=== PATIENT | female | born 1940 | race Hispanic/Latino ===

== ENCOUNTER 2016-10-21 11:13 | Outpatient (CLI) | payer MEDICARE, OTHER ==
--- NOTE | 2016-10-25 08:53 | PET Report ---
PET/CT:10/21/16 11:13:00 CLINICAL: Left lung cancer restaging. RADIOPHARMACEUTICAL: 12.23mCi F18-FDG. COMPARISON: 06/17/16 PET/CT TECHNIQUE- Following intravenous injection of F-18 FDG and an approximately 60 minute uptake period, CT and PET images from the mid skull to the upper thighs were acquired with the patient in the fasted state. No contrast was administered. The CT protocol used for this PET CT study is designed for attenuation correction and anatomic localization of PET abnormalities. This mailmaster CT is not desired to produce and cannot replace, ienpu-gi-kub-art diagnostic CT scans with specific imaging protocols for different body parts and indications. Plasma glucose at the time of this test: 131g/dl. The standardized uptake values (SUV) are normalized to patient body weight and indicate the highest activity concentration (SUV max) in a given disease site. FINDINGS: Brain--Physiologic FDG uptake in the visualized regions of the brain. Neck--Physiologic FDG uptake . Chest--Physiologic FDG uptake in mediastinal blood pool and myocardium. Lungs--The previously described spiculated left upper lobe lung mass enters 6.2 x 3.7 cm with SUV 4.7 compared to 5.9 x 5.5 and 10.4 SUV on the last exam. The volume of residual FDG uptake a smaller as well. The irregular right upper lobe lung mass has lower density and measures 3.7 x 3.4 cm with SUV 3.1 compared to 2.0. A new lingular lung mass underlies the left sixth rib and measures 1.6 x 1.2 cm with SUV 6.6. Pleura/pericardium--No abnormal uptake. Thoracic nodes--No abnormal uptake. Hepatobiliary--No abnormal uptake. Liver background SUV mean, as a reference for comparing FDG studies, is 5.5 compared to 4.4 on the last exam. No liver mass. Spleen--No abnormal uptake. Pancreas--No abnormal uptake. Adrenal Glands--No abnormal uptake. Kidneys/Ureters/Bladder--No abnormal uptake. Abdominopelvic Nodes--No abnormal uptake. Bowel/Peritoneum/Mesentery--No abnormal uptake. Pelvic organs--No abnormal uptake. Bones/Soft Tissues--The previously described right seventh rib lesion this demonstrates increased FDG uptake with SUV 4.1 compared to 2.9. However, there is a new lucency in the medial cortex consistent with a fracture. No other abnormal uptake and no other lesions identified. Other findings: Stable large hiatal hernia. IMPRESSION- 1. A new FDG avid 1.6 cm lingular lung nodule is suspicious for a new metastasis. 2. Suspect a new fracture of the right seventh rib involving the previously described lytic lesion. 3. The previous described left upper lobe lung mass is not significantly changed in size but demonstrates reduced FDG uptake. 4. Stable right upper lobe lung mass. 5. No evidence of hepatic or kathrin metastasis.
== END 2016-10-21 11:14 | disposition home or self-care (01) ==
LOC: PET 11:13
PROVIDERS: ATTEND Internal Medicine Hematology & Oncology
DX: C34.92 Malignant neoplasm of unspecified part of left bronchus or lung (principal); K44.9 Diaphragmatic hernia without obstruction or gangrene; R91.1 Solitary pulmonary nodule; R91.8 Other nonspecific abnormal finding of lung field; Z79.899 Other long term (current) drug therapy
CPT/HCPCS: 78815; 82962; A9552

== ENCOUNTER 2017-02-24 10:36 | Outpatient (CLI) | payer MEDICARE, OTHER ==
--- NOTE | 2017-03-01 09:44 | PET Report ---
PET/CT:02/24/17 10:36:00 CLINICAL: Lung cancer restaging. RADIOPHARMACEUTICAL: 15.092mCi F18-FDG. COMPARISON: 10/21/16 PET/CT TECHNIQUE- Following intravenous injection of F-18 FDG and an approximately 60 minute uptake period, CT and PET images from the mid skull to the upper thighs were acquired with the patient in the fasted state. No contrast was administered. The CT protocol used for this PET CT study is designed for attenuation correction and anatomic localization of PET abnormalities. This media producer CT is not desired to produce and cannot replace, fcnvb-dz-zwn-art diagnostic CT scans with specific imaging protocols for different body parts and indications. Plasma glucose at the time of this test: 108g/dl. The standardized uptake values (SUV) are normalized to patient body weight and indicate the highest activity concentration (SUV max) in a given disease site. FINDINGS: Brain--Physiologic FDG uptake in the visualized regions of the brain. Neck--Physiologic FDG uptake . Chest--Physiologic FDG uptake in mediastinal blood pool and myocardium. Lungs--The FDG avid left upper lobe lung mass measures 3.9 x 3.5 cm with SUV 3.1 compared to 6.2 x 3.7 cm with SUV 4.7. Stable irregular right upper lobe lung mass with heterogeneous density measuring 3.7 x 3.4 cm with SUV 3.1 compared to 3.1 on the last exam. The previously described lingular lung mass has resolved. Pleura/pericardium--No abnormal uptake. Thoracic nodes--No abnormal uptake. Hepatobiliary--No abnormal uptake. Liver background SUV mean, as a reference for comparing FDG studies, is 5.2 compared to 5.0 on the last exam. No liver mass. Spleen--No abnormal uptake. Pancreas--No abnormal uptake. Adrenal Glands--No abnormal uptake. Kidneys/Ureters/Bladder--No abnormal uptake. Abdominopelvic Nodes--No abnormal uptake. Bowel/Peritoneum/Mesentery--No abnormal uptake. Pelvic organs--No abnormal uptake. Bones/Soft Tissues--New FDG uptake in the left T3 pedicle with SUV 4.7. There is also focal FDG uptake in the left T3 lamina but this should be 4.9. This is not significantly changed compared to the prior exam. Resolution of FDG uptake in the right seventh rib. Other findings: Large hiatal hernia. IMPRESSION- 1. A smaller left upper lobe FDG avid lung mass with decreased FDG uptake. 2. Resolution of the previously described lingular nodule. 3. Stable right upper lobe lung mass with stable FDG uptake. 4. New FDG uptake in the left T3 pedicle is suspicious for a new bone metastasis. Stable FDG uptake in the left T3 lamina. Recommend MRI thoracic spine without and with contrast.
== END 2017-02-24 10:37 | disposition home or self-care (01) ==
LOC: PET 10:36
PROVIDERS: ATTEND Internal Medicine Hematology & Oncology
DX: C34.92 Malignant neoplasm of unspecified part of left bronchus or lung (principal); K44.9 Diaphragmatic hernia without obstruction or gangrene; I10 Essential (primary) hypertension; E78.00 Pure hypercholesterolemia, unspecified; J44.9 Chronic obstructive pulmonary disease, unspecified; Z87.891 Personal history of nicotine dependence
CPT/HCPCS: 78815; 82962; A9552

== ENCOUNTER 2017-03-16 14:06 | Outpatient (CLI) | payer MEDICARE, OTHER ==
--- NOTE | 2017-03-18 10:56 | Magnetic Resonance Report ---
MRI THORACIC SPINE WITHOUT CONTRAST: 03/16/17 CLINICAL: Lung cancer and a recent abnormal CT PET with a suspicion of a new metastatic lesion of the left T3 pedicle. TECHNIQUE: Sagittal and axial T1 and T2, and sagittal STIR sequences on a 1.5 Riri magnet without contrast. The patient declined IV contrast. FINDINGS: Normal vertebral body height, alignment and disk spaces. Overall marrow signal is normal. Abnormal focal marrow signal involving the left posterolateral T3 vertebral body, left T3 pedicle, left T3 lamina and T3 spinous process. These areas are hypointense on T1 and mildly hyperintense on T2. The T3 vertebral body is hyperintense on STIR. The abnormal signal in the left T3 pedicle correlates with new FDG uptake on the recent PET. In addition, there is erosion of the left T3 lamina with suggestion of a soft tissue mass at the lamina producing mild mass effect on the dura with slight right anterior displacement of the thecal sac and spinal cord. The spinal cord is normal size with normal signal at all levels. No intradural extension of tumor. Mild T12-L1 disc bulge. The rest of the disc are intact. IMPRESSION: Metastatic lesions involving the T3 vertebral body, left T3 pedicle, T3 spinous process and left T3 lamina. This is accompanied by a left posterolateral extradural soft tissue mass producing mild mass effect on the thecal sac and spinal cord at T3. No intradural lesion or cord lesion.
== END 2017-03-16 14:07 | disposition home or self-care (01) ==
LOC: SPVIMAG 14:06
PROVIDERS: ATTEND Internal Medicine Hematology & Oncology
DX: C79.51 Secondary malignant neoplasm of bone (principal); C34.92 Malignant neoplasm of unspecified part of left bronchus or lung
CPT/HCPCS: 72146

== ENCOUNTER 2017-04-13 13:32 | Inpatient (IN) | payer MEDICARE, OTHER ==
[2017-04-13] MEDS ORDERED: DUONEB *Not for PRN Use IH ONE (14:14)
--- NOTE | 2017-04-13 14:40 | Emergency Department Report ---
ED Shortness of Breath HPI - General Chief Complaint: Weakness Stated Complaint: GENERAL WEAKNESS Source: patient, EMS Mode of arrival: Stretcher Limitations: Physical Limitation - History of Present Illness Initial Comments: Patient is a very poor and somewhat confused historian. She states that she is currently getting radiation and chemotherapy. She states that she has been very weak since the onset of radiation therapy on the . Apparently she fell yesterday but didn't hurt herself due to weakness. She denies syncope. Triage note states that she is unable to move but this is absolutely inaccurate. Can move both her arms and legs without difficulty. She complains of generalized weakness and malaise. She was found to be very tachypneic on arrival in the emergency department. She is not complaining of chest pain. She is not complaining of any painful area or injury at all. She is on home O2 therapy. MD Complaint: shortness of breath -: unknown (very poor historian) Severity: moderate, severe Quality: other (no painful complaints) Consistency: constant (respiratory difficulty and weakness) Improves With: nothing Known History Of: other (stage IV lung cancer) - Related Data Home Medications Medication Instructions Recorded Confirmed Last Taken Albuterol (Nf) [Proventil TAB] 4 mg PO BID 12/16/15 04/13/17 12/15/15 Hydrochlorothiazide [HCTZ] 25 mg PO QDAY 12/16/15 04/13/17 12/15/15 LORazepam [Ativan] 0.5 mg PO BID 12/16/15 04/13/17 12/15/15 Lisinopril [Zestril TAB] 10 mg PO QDAY 12/16/15 04/13/17 12/15/15 Denosumab [Xgeva] 120 mg SUB-Q 04/13/17 Unknown Dexamethasone [Decadron] 4 mg PO Q8H 04/13/17 04/13/17 Unknown Opdivo 04/13/17 Unknown Simvastatin [Zocor] 40 mg PO 04/13/17 Unknown Theophylline Anhydrous 400 mg PO 04/13/17 Unknown [Theophylline] Umeclidinium Brm/Vilanterol Tr 1 each IH 04/13/17 Unknown [Anoro Ellipta 62.5-25 Mcg INH] Allergies Allergy/AdvReac Type Severity Reaction Status Date / Time niacin Allergy Severe Swelling Verified 04/13/17 13:55 IVP DYE Allergy Hives Uncoded 04/13/17 13:55 ED Review of Systems ROS: Stated complaint: GENERAL WEAKNESS Other details as noted in HPI Comment: Unobtainable due to pts medical conditions (limited secondary to respiratory distress) ED Past Medical Hx - Past Medical History Previous Medical History?: Yes Hx Hypertension: Yes Hx Diabetes: Yes Hx of Cancer: Yes (Stage 4 Lung) Hx COPD: Yes Additional medical history: Osteopena - Surgical History Additional Surgical History: Hysterectomy, - Social History Smoking Status: Former Smoker Substance Use Type: Prescribed - Medications Home Medications: Home Medications Medication Instructions Recorded Confirmed Last Taken Type Albuterol (Nf) [Proventil TAB] 4 mg PO BID 12/16/15 04/13/17 12/15/15 History Hydrochlorothiazide [HCTZ] 25 mg PO QDAY 12/16/15 04/13/17 12/15/15 History LORazepam [Ativan] 0.5 mg PO BID 12/16/15 04/13/17 12/15/15 History Lisinopril [Zestril TAB] 10 mg PO QDAY 12/16/15 04/13/17 12/15/15 History Denosumab [Xgeva] 120 mg SUB-Q 04/13/17 Unknown History Dexamethasone [Decadron] 4 mg PO Q8H 04/13/17 04/13/17 Unknown History Opdivo 04/13/17 Unknown History Simvastatin [Zocor] 40 mg PO 04/13/17 Unknown History Theophylline Anhydrous 400 mg PO 04/13/17 Unknown History [Theophylline] Umeclidinium Brm/Vilanterol Tr 1 each IH 04/13/17 Unknown History [Anoro Ellipta 62.5-25 Mcg INH] ED Physical Exam - General Limitations: Physical Limitation General appearance: anxious - Head Head exam: Present: atraumatic, normocephalic - Eye Eye exam: Present: normal appearance. Absent: scleral icterus - ENT ENT exam: Present: mucous membranes moist - Neck Neck exam: Present: normal inspection. Absent: tenderness, meningismus - Respiratory Respiratory exam: Present: respiratory distress, decreased breath sounds - Cardiovascular Cardiovascular Exam: Present: regular rate, normal rhythm. Absent: systolic murmur, diastolic murmur, rubs, gallop - GI/Abdominal GI/Abdominal exam: Present: soft, normal bowel sounds. Absent: distended, tenderness, guarding, rebound, rigid - Extremities Exam Extremities exam: Present: normal inspection, full ROM - Back Exam Back exam: Present: normal inspection - Neurological Exam Neurological exam: Present: alert, CN II-XII intact (as testable), other (poor memory for dates of illness ). Absent: motor sensory deficit - Psychiatric Psychiatric exam: Present: normal affect, normal mood - Skin Skin exam: Present: warm, dry, intact, normal color. Absent: rash ED Course Vital Signs 04/13/17 04/13/17 04/13/17 13:33 13:39 13:46 Temperature 98.7 F Pulse Rate 96 H 99 H Pulse Rate [ Anterior Bilateral Throughout] Respiratory 31 H 40 H 26 H Rate Respiratory Rate [Anterior Bilateral Throughout] Blood Pressure 118/83 118/83 O2 Sat by Pulse 98 Oximetry 04/13/17 04/13/17 04/13/17 14:00 14:25 14:27 Temperature Pulse Rate 93 H 93 H Pulse Rate [ 91 H Anterior Bilateral Throughout] Respiratory 51 H Rate Respiratory 22 Rate [Anterior Bilateral Throughout] Blood Pressure 117/76 O2 Sat by Pulse 98 Oximetry - Reevaluation(s) Reevaluation #1: Patient's arterial blood gas was acceptable. She was given a neb. She was given a bolus of IV fluid to help reduce her potassium and began her rehydration. She has severe prerenal azotemia/uremia and hyperkalemia. She will be admitted by Dr. Salazar for further care. 04/13/17 15:46 ED Medical Decision Making - Lab Data Result diagrams: 04/13/17 14:51 04/13/17 14:51 Laboratory Results - last 24 hr 04/13/17 04/13/17 14:37 14:51 WBC 17.2 H RBC 4.86 Hgb 14.0 Hct 42.6 MCV 88 MCH 29 MCHC 33 RDW 17.2 H Plt Count 184 POC ABG pH 7.525 H POC ABG pCO2 28.5 L POC ABG pO2 92 POC ABG HCO3 23.5 POC ABG Total CO2 24 POC ABG O2 Sat 98 POC ABG Base Excess 1 FiO2 28 Arterial blood gas consistent with respiratory alkalosis. Adequate oxygenation increased a-A gradient. Laboratory Results - last 24 hr 04/13/17 04/13/17 04/13/17 14:37 14:51 14:51 WBC 17.2 H RBC 4.86 Hgb 14.0 Hct 42.6 MCV 88 MCH 29 MCHC 33 RDW 17.2 H Plt Count 184 PT INR APTT POC ABG pH 7.525 H POC ABG pCO2 28.5 L POC ABG pO2 92 POC ABG HCO3 23.5 POC ABG Total CO2 24 POC ABG O2 Sat 98 POC ABG Base Excess 1 FiO2 28 Sodium 134 L Potassium 5.4 H Chloride 97.2 L Carbon Dioxide 22 Anion Gap 20 BUN 98 H Creatinine 1.3 H Estimated GFR 40 BUN/Creatinine Ratio 75 Glucose 169 H Calcium 10.4 H Troponin T < 0.010 04/13/17 14:51 WBC RBC Hgb Hct MCV MCH MCHC RDW Plt Count PT 13.7 INR 1.00 APTT < 20.0 L POC ABG pH POC ABG pCO2 POC ABG pO2 POC ABG HCO3 POC ABG Total CO2 POC ABG O2 Sat POC ABG Base Excess FiO2 Sodium Potassium Chloride Carbon Dioxide Anion Gap BUN Creatinine Estimated GFR BUN/Creatinine Ratio Glucose Calcium Troponin T - EKG Data -: EKG Interpreted by Me EKG shows normal: sinus rhythm Rate: tachycardia - EKG Data Interpretation: other (very prominent somewhat peaked T waves possibly consistent with hyperkalemia no evidence of acute ischemia) - Radiology Data interpreted by me: Chest x-ray no acute process or traumatic injury seen Critical Care Time: Yes Critical care time in (mins) excluding proc time.: 55 Critical care attestation.: If time is entered above; I have spent that time in minutes in the direct care of this critically ill patient, excluding procedure time. ED Disposition Clinical Impression: Respiratory distress, Prerenal azotemia, Hyperkalemia Squamous cell carcinoma of lung, stage IV Qualifiers: Laterality: unspecified laterality Qualified Code(s): C34.90 - Malignant neoplasm of unspecified part of unspecified bronchus or lung Disposition: DC-09 OP ADMIT IP TO THIS HOSP Is pt being admited?: Yes Does the pt Need Aspirin: Yes Condition: Stable Referrals: PRIMARY CARE, [Primary Care Provider] - 3-5 Days Time of Disposition: 15:46
[2017-04-13 14:41] LABS: ISTAT Base Excess 1; ISTAT HCO3 23.5; ISTAT PCO2 28.5 (35-45); ISTAT PH 7.525 (7.35-7.45); ISTAT PO2 92 (80-105); ISTAT SO2 98; ISTAT TCO2 24
[2017-04-13 15:06] LABS: Hematocrit 42.6 % (30.3-42.9); Mean Corpuscular HGB Conc 33 % (30-34); Mean Corpuscular Hemoglobin 29 pg (28-32); Mean Corpuscular Volume 88 fl (79-97); Platelet Count 184 K/mm3 (140-440); Red Blood Count 4.86 M/mm3 (3.65-5.03); Red Cell Distribution Width 17.2 % (13.2-15.2); White Blood Count 17.2 K/mm3 (4.5-11.0)
[2017-04-13 15:17] LABS: Partial Thromboplastin Time < 20.0 Sec. (24.2-36.6)
[2017-04-13 15:26] LABS: Anion Gap 20 mmol/L; BUN/Creatinine Ratio 75; Blood Urea Nitrogen 98 mg/dL (7-17); Calcium 10.4 mg/dL (8.4-10.2); Carbon Dioxide 22 mmol/L (22-30); Chloride 97.2 mmol/L (98-107); Glucose 169 mg/dL (65-100); Potassium 5.4 mmol/L (3.6-5.0); Sodium 134 mmol/L (137-145)
[2017-04-13] MEDS ORDERED: KIONEX PO ONE ×2 (15:30→15:44)
[2017-04-13] MEDS ORDERED: NACL 0.9% 1000 ML 1,000 ML IV ONE (15:33)
--- NOTE | 2017-04-13 15:36 | XRay Report ---
Single view chest: Compared to 09/15/15. History: Hypertension. Findings: Cardiomegaly. Trachea is midline. Emphysema. No acute consolidation present study. Stable right venous line. Impression: No acute cardiopulmonary findings
[2017-04-13 15:39] LABS: Alanine Aminotransferase 20 units/L (7-56); Albumin 3.8 g/dL (3.9-5); Albumin/Globulin Ratio 1.5 %; Alkaline Phosphatase 49 units/L (35-129); Total Protein 6.4 g/dL (6.3-8.2)
[2017-04-13] MEDS ORDERED: BABY ASPIRIN PO ONE (15:47)
[2017-04-13 15:52] LABS: Bilirubin,Direct < 0.2 mg/dL (0-0.2); Bilirubin,Indirect 0.1 mg/dL
[2017-04-13] MEDS: MORPHINE IV PRN (18:00)
[2017-04-13 18:28] LABS: Basophils % (Manual) 0 % (0.0-1.8); Blastocytes % (Manual) 0 %
[2017-04-13 18:29] LABS: Eosinophils % (Manual) 0 % (0.0-4.3); Total Cells Counted Percent 0
[2017-04-13 18:30] LABS: Anisocytosis 1+; Diff Status Complete; Platelet Estimate Consistent w Auto; Polychromasia Few
--- NOTE | 2017-04-13 21:06 | History and Physical Report ---
History of Present Illness Date of examination: 04/13/17 Date of admission: 04/13/17 15:49 Chief complaint: CC Increasing SOB of 1 week duration. History of present illness: [place]:77 y/o female with pmh of Lung Ca ,COPD and HLD comes in for severe weakness and increasing SOB of1 week duration and worsening.Feels very weak.On Chemo And XRT for Lung ca of 1 year duration.Cough productive of mucoid sputum.No fever or chills.No recent travel. Past Medical History Previous Medical History?: Yes Hx Hypertension: Yes Hx Diabetes: Yes Hx of Cancer: Yes (Stage 4 Lung) Hx COPD: Yes Additional medical history: Osteopena Surgical History Additional Surgical History: Hysterectomy, Fam Hx HTN - Social History Smoking Status: Former Smoker Substance Use Type: Prescribed - Medications Home Medications: Home Medications Medication Instructions Recorded Confirmed Last Taken Type Albuterol (Nf) [Proventil TAB] 4 mg PO BID 12/16/15 04/13/17 12/15/15 History Hydrochlorothiazide [HCTZ] 25 mg PO QDAY 12/16/15 04/13/17 12/15/15 History LORazepam [Ativan] 0.5 mg PO BID 12/16/15 04/13/17 12/15/15 History Lisinopril [Zestril TAB] 10 mg PO QDAY 12/16/15 04/13/17 12/15/15 History Denosumab [Xgeva] 120 mg SUB-Q 04/13/17 Unknown History Dexamethasone [Decadron] 4 mg PO Q8H 04/13/17 04/13/17 Unknown History Opdivo 04/13/17 Unknown History Simvastatin [Zocor] 40 mg PO 04/13/17 Unknown History Theophylline Anhydrous 400 mg PO 04/13/17 Unknown History [Theophylline] Umeclidinium Brm/Vilanterol Tr 1 each IH 04/13/17 Unknown History [Anoro Ellipta 62.5-25 Mcg INH] Medications and Allergies Allergies Allergy/AdvReac Type Severity Reaction Status Date / Time niacin Allergy Severe Swelling Verified 04/13/17 13:55 IVP DYE Allergy Hives Uncoded 04/13/17 13:55 Home Medications Medication Instructions Recorded Confirmed Last Taken Type Albuterol (Nf) [Proventil TAB] 4 mg PO BID 12/16/15 04/13/1716 History Hydrochlorothiazide [HCTZ] 25 mg PO QDAY 12/16/15 04/13/17 12/15/15 History LORazepam [Ativan] 0.5 mg PO BID 12/16/15 04/13/17 12/15/15 History Lisinopril [Zestril TAB] 10 mg PO QDAY 12/16/15 04/13/17 12/15/15 History Denosumab [Xgeva] 120 mg SUB-Q 04/13/17 Unknown History Dexamethasone [Decadron] 4 mg PO Q8H 04/13/17 04/13/17 Unknown History Opdivo 04/13/17 Unknown History Simvastatin [Zocor] 40 mg PO 04/13/17 Unknown History Theophylline Anhydrous 400 mg PO 04/13/17 Unknown History [Theophylline] Umeclidinium Brm/Vilanterol Tr 1 each IH 04/13/17 Unknown History [Anoro Ellipta 62.5-25 Mcg INH] Active Meds: Active Medications Morphine Sulfate (Morphine) 2 mg IV Q3H PRN PRN Reason: Pain, Moderate (4-6) Last Admin: 04/13/17 18:00 Dose: 2 mg Review of Systems All systems: negative Constitutional: weight loss, no weight gain, no fever, no chills, no sweats, no night sweats Ears, nose, mouth and throat: no hoarseness, no sore throat, no swelling in mouth, no odynophagia Breasts: deferred Cardiovascular: shortness of breath, no chest pain, no orthopnea, no palpitations Respiratory: cough with sputum, dyspnea on exertion, congestion, wheezing Gastrointestinal: no abdominal pain, no nausea, no vomiting, no diarrhea Genitourinary Female: no flank pain, no menorrhagia, no dysuria, no urinary frequency, no urgency Menstruation: ammenorrhea Rectal: no pain Musculoskeletal: no neck stiffness, no neck pain, no shooting arm pain, no arm numbness/tingling Integumentary: no rash, no pruritis, no redness, no sores Neurological: no seizures, no syncope Psychiatric: change in sleep habits, sleep disturbances, no anxiety, no memory loss Endocrine: no cold intolerance, no heat intolerance, no polyphagia, no excessive thirst, no polydipsia, no polyuria Hematologic/Lymphatic: no easy bruising, no easy bleeding Allergic/Immunologic: wheezing, no urticaria, no allergic rhinitis Exam - Physical Exam Narrative exam: Lying uncomfortable - Constitutional Vitals: Temp Pulse Resp BP Pulse Ox 98.1 F 96 H 17 104/57 98 04/13/17 18:13 04/13/17 18:22 04/13/17 18:00 04/13/17 18:00 04/13/17 14:00 General appearance: Present: severe distress, well-nourished - EENT Eyes: Present: PERRL ENT: hearing intact, clear oral mucosa - Neck Neck: Present: supple, normal ROM - Respiratory Respiratory effort: normal Respiratory: bilateral: diminished, rhonchi, wheezing - Cardiovascular Heart rate: 90 Rhythm: regular Heart Sounds: Present: S1 & S2. Absent: rub, click - Extremities Extremities: pulses symmetrical, No edema Peripheral Pulses: within normal limits - Abdominal General gastrointestinal: Present: soft, non-tender, non-distended, normal bowel sounds Female genitourinary: Present: normal - Integumentary Integumentary: Present: clear, warm, dry - Musculoskeletal Musculoskeletal: gait normal, strength equal bilaterally - Psychiatric Psychiatric: appropriate mood/affect, intact judgment & insight - Neurologic Neurologic: CNII-XII intact, moves all extremities - Allied Health Allied health notes reviewed: nursing, case management Results - Labs CBC & Chem 7: 04/14/17 04:46 04/14/17 04:46 Labs: Laboratory Last Values WBC 17.2 K/mm3 (4.5-11.0) H 04/13/17 14:51 RBC 4.86 M/mm3 (3.65-5.03) 04/13/17 14:51 Hgb 14.0 gm/dl (10.1-14.3) 04/13/17 14:51 Hct 42.6 % (30.3-42.9) 04/13/17 14:51 MCV 88 fl (79-97) 04/13/17 14:51 MCH 29 pg (28-32) 04/13/17 14:51 MCHC 33 % (30-34) 04/13/17 14:51 RDW 17.2 % (13.2-15.2) H 04/13/17 14:51 Plt Count 184 K/mm3 (140-440) 04/13/17 14:51 Add Manual Diff Complete 04/13/17 14:51 Total Counted 100 04/13/17 14:51 Seg Neuts % (Manual) 99.0 % (40.0-70.0) H 04/13/17 14:51 Band Neutrophils % 0 % 04/13/17 14:51 Lymphocytes % (Manual) 1.0 % (13.4-35.0) L 04/13/17 14:51 Reactive Lymphs % (Man) 0 % 04/13/17 14:51 Monocytes % (Manual) 0 % (0.0-7.3) 04/13/17 14:51 Eosinophils % (Manual) 0 % (0.0-4.3) 04/13/17 14:51 Basophils % (Manual) 0 % (0.0-1.8) 04/13/17 14:51 Metamyelocytes % 0 % 04/13/17 14:51 Myelocytes % 0 % 04/13/17 14:51 Promyelocytes % 0 % 04/13/17 14:51 Blast Cells % 0 % 04/13/17 14:51 Nucleated RBC % Not Reportable 04/13/17 14:51 Seg Neutrophils # Man 17.0 K/mm3 (1.8-7.7) H 04/13/17 14:51 Band Neutrophils # 0.0 K/mm3 04/13/17 14:51 Lymphocytes # (Manual) 0.2 K/mm3 (1.2-5.4) L 04/13/17 14:51 Abs React Lymphs (Man) 0.0 K/mm3 04/13/17 14:51 Monocytes # (Manual) 0.0 K/mm3 (0.0-0.8) 04/13/17 14:51 Eosinophils # (Manual) 0.0 K/mm3 (0.0-0.4) 04/13/17 14:51 Basophils # (Manual) 0.0 K/mm3 (0.0-0.1) 04/13/17 14:51 Metamyelocytes # 0.0 K/mm3 04/13/17 14:51 Myelocytes # 0.0 K/mm3 04/13/17 14:51 Promyelocytes # 0.0 K/mm3 04/13/17 14:51 Blast Cells # 0.0 K/mm3 04/13/17 14:51 WBC Morphology Not Reportable 04/13/17 14:51 Hypersegmented Neuts Not Reportable 04/13/17 14:51 Hyposegmented Neuts Not Reportable 04/13/17 14:51 Hypogranular Neuts Not Reportable 04/13/17 14:51 Smudge Cells Not Reportable 04/13/17 14:51 Toxic Granulation Not Reportable 04/13/17 14:51 Toxic Vacuolation Not Reportable 04/13/17 14:51 Dohle Bodies Not Reportable 04/13/17 14:51 Pelger-Huet Anomaly Not Reportable 04/13/17 14:51 Rima Rods Not Reportable 04/13/17 14:51 Platelet Estimate Consistent w auto 04/13/17 14:51 Clumped Platelets Not Reportable 04/13/17 14:51 Plt Clumps, EDTA Not Reportable 04/13/17 14:51 Large Platelets Not Reportable 04/13/17 14:51 Giant Platelets Not Reportable 04/13/17 14:51 Platelet Satelliting Not Reportable 04/13/17 14:51 Plt Morphology Comment Not Reportable 04/13/17 14:51 RBC Morphology Not Reportable 04/13/17 14:51 Dimorphic RBCs Not Reportable 04/13/17 14:51 Polychromasia Few 04/13/17 14:51 Hypochromasia Not Reportable 04/13/17 14:51 Poikilocytosis Not Reportable 04/13/17 14:51 Anisocytosis 1+ 04/13/17 14:51 Microcytosis Not Reportable 04/13/17 14:51 Macrocytosis Not Reportable 04/13/17 14:51 Spherocytes Not Reportable 04/13/17 14:51 Pappenheimer Bodies Not Reportable 04/13/17 14:51 Sickle Cells Not Reportable 04/13/17 14:51 Target Cells Not Reportable 04/13/17 14:51 Tear Drop Cells Not Reportable 04/13/17 14:51 Ovalocytes Not Reportable 04/13/17 14:51 Helmet Cells Not Reportable 04/13/17 14:51 [place] Bodies Not Reportable 04/13/17 14:51 Moore Rings Not Reportable 04/13/17 14:51 Poly Cells Not Reportable 04/13/17 14:51 Bite Cells Not Reportable 04/13/17 14:51 Crenated Cell Not Reportable 04/13/17 14:51 Elliptocytes Not Reportable 04/13/17 14:51 Acanthocytes (Spur) Not Reportable 04/13/17 14:51 Rouleaux Not Reportable 04/13/17 14:51 Hemoglobin C Crystals Not Reportable 04/13/17 14:51 Schistocytes Not Reportable 04/13/17 14:51 Malaria parasites Not Reportable 04/13/17 14:51 Brian Bodies Not Reportable 04/13/17 14:51 Hem Pathologist Commnt No 04/13/17 14:51 PT 13.7 Sec. (12.2-14.9) 04/13/17 14:51 INR 1.00 (0.87-1.13) 04/13/17 14:51 APTT < 20.0 Sec. (24.2-36.6) L 04/13/17 14:51 POC ABG pH 7.525 (7.35-7.45) H 04/13/17 14:37 POC ABG pCO2 28.5 (35-45) L 04/13/17 14:37 POC ABG pO2 92 (80-105) 04/13/17 14:37 POC ABG HCO3 23.5 04/13/17 14:37 POC ABG Total CO2 24 04/13/17 14:37 POC ABG O2 Sat 98 04/13/17 14:37 POC ABG Base Excess 1 04/13/17 14:37 FiO2 28 % 04/13/17 14:37 Sodium 134 mmol/L (137-145) L 04/13/17 14:51 Potassium 5.4 mmol/L (3.6-5.0) H 04/13/17 14:51 Chloride 97.2 mmol/L (98-107) L 04/13/17 14:51 Carbon Dioxide 22 mmol/L (22-30) 04/13/17 14:51 Anion Gap 20 mmol/L 04/13/17 14:51 BUN 98 mg/dL (7-17) H 04/13/17 14:51 Creatinine 1.3 mg/dL (0.7-1.2) H 04/13/17 14:51 Estimated GFR 40 ml/min 04/13/17 14:51 BUN/Creatinine Ratio 75 % 04/13/17 14:51 Glucose 169 mg/dL (65-100) H 04/13/17 14:51 Lactic Acid 2.20 mmol/L (0.7-2.0) H* 04/13/17 14:51 Calcium 10.4 mg/dL (8.4-10.2) H 04/13/17 14:51 Phosphorus 3.70 mg/dL (2.5-4.5) 04/13/17 14:51 Magnesium 2.30 mg/dL (1.7-2.3) 04/13/17 14:51 Total Bilirubin 0.30 mg/dL (0.1-1.2) 04/13/17 14:51 Direct Bilirubin < 0.2 mg/dL (0-0.2) 04/13/17 14:51 Indirect Bilirubin 0.1 mg/dL 04/13/17 14:51 AST 20 units/L (5-40) 04/13/17 14:51 ALT 20 units/L (7-56) 04/13/17 14:51 Alkaline Phosphatase 49 units/L (35-129) 04/13/17 14:51 Troponin T < 0.010 ng/mL (0.00-0.029) 04/13/17 14:51 NT-Pro-B Natriuret Pep 305.5 pg/mL (0-900) 04/13/17 14:51 Total Protein 6.4 g/dL (6.3-8.2) 04/13/17 14:51 Albumin 3.8 g/dL (3.9-5) L 04/13/17 14:51 Albumin/Globulin Ratio 1.5 % 04/13/17 14:51 Blood Type A POSITIVE 04/13/17 14:50 Antibody Screen Negative 04/13/17 14:50 Short CBC 04/13/17 04/14/17 Range/Units 14:51 04:46 WBC 17.2 H 13.7 H (4.5-11.0) K/mm3 Hgb 14.0 13.3 (10.1-14.3) gm/dl Hct 42.6 40.2 (30.3-42.9) % Plt Count 184 149 (140-440) K/mm3 BMP 04/13/17 04/14/17 14:51 04:46 Sodium 134 L 135 L Potassium 5.4 H 4.9 Chloride 97.2 L 96.8 L Carbon Dioxide 22 27 BUN 98 H 78 H Creatinine 1.3 H 1.0 Glucose 169 H 189 H Calcium 10.4 H 8.9 Cardiac Enzymes 04/13/17 Range/Units 14:51 Troponin T < 0.010 (0.00-0.029) ng/mL Liver Function 04/13/17 04/14/17 Range/Units 14:51 04:46 Total Bilirubin 0.30 0.30 (0.1-1.2) mg/dL Direct Bilirubin < 0.2 (0-0.2) mg/dL AST 20 18 (5-40) units/L ALT 20 19 (7-56) units/L Alkaline Phosphatase 49 42 (35-129) units/L Albumin 3.8 L 3.3 L (3.9-5) g/dL - Imaging and Cardiology Chest x-ray: report reviewed (NAF) Assessment and Plan Advance Directives: Yes (Full code) VTE prophylaxis?: Chemical Plan of care discussed with patient/family: Yes - Patient Problems (1) Sepsis Current Visit: Yes Status: Acute Qualifiers: Sepsis type: sepsis due to unspecified organism Qualified Code(s): A41.9 - Sepsis, unspecified organism Plan to address problem: Patient initiated on IV Zosyn and Levaquin.Levaquin stopped.Lactic acid 2.2.High WBC.Meets sepsis criteria. ID consulted (2) Acute respiratory failure Current Visit: Yes Status: Acute Qualifiers: Respiratory failure complication: hypoxia Qualified Code(s): J96.01 - Acute respiratory failure with hypoxia Plan to address problem: Patient initiated on Duonebs and Solumedroland IV Zosyn.Bipap if necessary. (3) Hyperkalemia Current Visit: Yes Status: Acute Plan to address problem: Kayexalate given in ER . Recheck K level (4) Squamous cell carcinoma of lung, stage IV Current Visit: Yes Status: Chronic Qualifiers: Laterality: unspecified laterality Qualified Code(s): C34.90 - Malignant neoplasm of unspecified part of unspecified bronchus or lung Plan to address problem: Dr Radford consulted.Her Oncologist (5) HTN (hypertension) Current Visit: Yes Status: Chronic Qualifiers: Hypertension type: essential hypertension Qualified Code(s): I10 - Essential (primary) hypertension Plan to address problem: Cont antihpertensives (6) BRYCE (acute kidney injury) Current Visit: Yes Status: Acute Plan to address problem: Prerenal component and ATN Iv fluids for now.Nephrology consulted (7) HLD (hyperlipidemia) Current Visit: Yes Status: Chronic Qualifiers: Hyperlipidemia type: mixed hyperlipidemia Qualified Code(s): E78.2 - Mixed hyperlipidemia Plan to address problem: Cont statins (8) DVT prophylaxis Current Visit: Yes Status: Acute Plan to address problem: On Lovenox
[2017-04-13] MEDS ORDERED: MILK OF MAGNESIA PO PRN (21:07)
[2017-04-13] MEDS ORDERED: DULCOLAX PR PRN (21:07)
[2017-04-13] MEDS ORDERED: DILAUDID IV PRN (21:07)
[2017-04-13] MEDS ORDERED: ZOFRAN IV PRN (21:07)
[2017-04-13] MEDS: DUONEB *Not for PRN Use IH SCH (21:59)
[2017-04-13] MEDS ORDERED: LEVAQUIN 750MG/150ML 750 MG/150 ML BAG IV SCH ×2 (22:00)
[2017-04-13] MEDS: PEPCID PO SCH (23:10)
[2017-04-13] MEDS: HEPARIN SUB-Q SCH (23:15)
[2017-04-14] MEDS: DUONEB *Not for PRN Use IH SCH ×4 (02:30→20:54)
[2017-04-14 05:17] LABS: Hematocrit 40.2 % (30.3-42.9); Hemoglobin 13.3 gm/dl (10.1-14.3); Mean Corpuscular HGB Conc 33 % (30-34); Mean Corpuscular Hemoglobin 29 pg (28-32); Mean Corpuscular Volume 87 fl (79-97); Platelet Count 149 K/mm3 (140-440); Red Blood Count 4.65 M/mm3 (3.65-5.03); White Blood Count 13.7 K/mm3 (4.5-11.0)
[2017-04-14 05:24] LABS: Albumin 3.3 g/dL (3.9-5); Albumin/Globulin Ratio 1.2 %; Bilirubin,Total 0.3 mg/dL (0.1-1.2); Calcium 8.9 mg/dL (8.4-10.2); Chloride 96.8 mmol/L (98-107); Potassium 4.9 mmol/L (3.6-5.0)
[2017-04-14] MEDS: HEPARIN SUB-Q SCH ×3 (05:45→22:20)
[2017-04-14 06:17] LABS: Anisocytosis Few; Basophils % (Manual) 0 % (0.0-1.8); Blastocytes % (Manual) 0 %; Eosinophils % (Manual) 0 % (0.0-4.3)
[2017-04-14 06:18] LABS: Diff Status Complete
[2017-04-14] MEDS ORDERED: DUONEB *Not for PRN Use IH (06:21)
[2017-04-14] MEDS ORDERED: PROVENTIL IH PRN (06:44)
[2017-04-14] MEDS: ZOSYN/NS 3.375GM/50ML 3.375 GM/50 ML BAG IV SCH ×2 (07:06→13:34)
[2017-04-14 08:25] LABS: Anion Gap 18 mmol/L; BUN/Creatinine Ratio 90; Blood Urea Nitrogen 72 mg/dL (7-17); Calcium 8.8 mg/dL (8.4-10.2); Carbon Dioxide 27 mmol/L (22-30); Glucose 196 mg/dL (65-100); Potassium 4.6 mmol/L (3.6-5.0); Sodium 136 mmol/L (137-145)
[2017-04-14] MEDS: NOVOLOG SUB-Q SCH ×4 (08:56→22:43)
[2017-04-14] MEDS: PEPCID PO SCH ×2 (09:05→22:20)
--- NOTE | 2017-04-14 09:12 | Consultation ---
History of Present Illness - Reason for Consult Consult date: 04/14/17 acute renal failure, hyperkalemia - History of Present Illness The patient is a 77 YO female with medical history significant for Lung Ca, COPD and HLD came to the ER with one week h/o generalized weakness, poor appetite and decreased PO intake. Patient also reports increasing SOB. Patient is on Chemo and Radiotherapy for Lung Cancer. Patient is a vague historian. She denies any N, V, D, abd pain, dizziness, fever, rash or dysuria. Her creatinine on admission was 1.3 with BUN 98. Creatinine improved to 0.8 today. Past History Past Medical History: cancer (Lung), COPD, hypertension Medications and Allergies Allergies Allergy/AdvReac Type Severity Reaction Status Date / Time niacin Allergy Severe Swelling Verified 04/13/17 13:55 IVP DYE Allergy Hives Uncoded 04/13/17 13:55 Home Medications Medication Instructions Recorded Confirmed Last Taken Type Albuterol (Nf) [Proventil TAB] 4 mg PO BID 12/16/15 04/13/17 12/15/15 History Hydrochlorothiazide [HCTZ] 25 mg PO QDAY 12/16/15 04/13/17 12/15/15 History LORazepam [Ativan] 0.5 mg PO BID 12/16/15 04/13/17 12/15/15 History Lisinopril [Zestril TAB] 10 mg PO QDAY 12/16/15 04/13/17 12/15/15 History Denosumab [Xgeva] 120 mg SUB-Q QDAY 04/13/17 04/14/17 Unknown History Dexamethasone [Decadron] 4 mg PO Q8H 04/13/17 04/13/17 Unknown History Opdivo 04/13/17 Unknown History Simvastatin [Zocor] 40 mg PO QHS 04/13/17 04/14/17 Unknown History Theophylline Anhydrous 400 mg PO QDAY 04/13/17 04/14/17 Unknown History [Theophylline] Umeclidinium Brm/Vilanterol Tr 1 each IH 04/13/17 Unknown History [Anoro Ellipta 62.5-25 Mcg INH] Active Meds: Active Medications Acetaminophen (Tylenol) 650 mg PO Q4H PRN PRN Reason: Pain MILD(1-3)/Fever >100.5/GALVAN Albuterol (Proventil) 2.5 mg IH Q3HRT PRN PRN Reason: Wheezing Albuterol/Ipratropium (Duoneb *Not For Prn Use*) 1 ampul IH Q6HRT [facility] Last Admin: 04/14/17 08:36 Dose: 1 ampul Bisacodyl (Dulcolax) 10 mg AR QDAY PRN PRN Reason: Constipation unrelieved by MOM Famotidine (Pepcid) 20 mg PO BID [facility] Last Admin: 04/13/17 23:10 Dose: 20 mg Heparin Sodium (Porcine) (Heparin) 5,000 unit SUB-Q Q8HR [facility] Last Admin: 04/14/17 05:45 Dose: 5,000 unit Hydromorphone HCl (Dilaudid) 0.5 mg IV Q3H PRN PRN Reason: Pain , Severe (7-10) Last Admin: 04/13/17 23:21 Dose: 0.5 mg Piperacillin Sod/Tazobactam Sod (Zosyn/Ns 3.375gm/50ml) 3.375 gm in 50 mls @ 100 mls/hr IV Q8HR [facility] PRN Reason: Protocol Last Admin: 04/14/17 07:06 Dose: 100 mls/hr Influenza Virus Vaccine Quadrival (Fluarix Quad [id number](36 Mos+)) 0.5 ml IM .ONCE ONE Stop: 04/14/17 12:01 Insulin Aspart (Novolog) 0 units SUB-Q ACHS [facility] PRN Reason: Protocol Last Admin: 04/14/17 08:56 Dose: 2 units Magnesium Hydroxide (Milk Of Magnesia) 30 ml PO Q4H PRN PRN Reason: Constipation Methylprednisolone Sodium Succinate (Solu-Medrol) 40 mg IV Q8HR [facility] Last Admin: 04/14/17 05:45 Dose: 40 mg Morphine Sulfate (Morphine) 2 mg IV Q3H PRN PRN Reason: Pain, Moderate (4-6) Last Admin: 04/13/17 18:00 Dose: 2 mg Nystatin (Nystatin) 100,000 unit PO TID [facility] Ondansetron HCl (Zofran) 4 mg IV Q8H PRN PRN Reason: N/V unrelieved by Reglan Oxycodone/Acetaminophen (Percocet 5/325) 1 tab PO Q6H PRN PRN Reason: Pain, Moderate (4-6) Pneumococcal Polyvalent Vaccine (Pneumovax 23) 0.5 ml IM .ONCE ONE Stop: 04/14/17 12:01 Review of Systems Constitutional: anorexia, fatigue, weakness, poor appetite, no weight gain, no fever Ears, nose, mouth and throat: no epistaxis Breasts: deferred Cardiovascular: shortness of breath, dyspnea on exertion, high blood pressure, no chest pain, no orthopnea, no edema, no syncope, no lightheadedness, no leg edema Respiratory: cough, cough with sputum, shortness of breath, dyspnea on exertion , no hemoptysis, no sleep apnea Gastrointestinal: no abdominal pain, no nausea, no vomiting, no diarrhea, no hematemesis, no melena Genitourinary Female: no dysuria, no urgency, no hematuria Rectal: no bleeding Integumentary: no rash, no wounds, no jaundice Neurological: weakness, no paralysis, no seizures, no syncope, no vertigo, no headaches, no convulsions, no paralysis Psychiatric: change in appetite Endocrine: weight change Hematologic/Lymphatic: no easy bleeding Exam - Vital Signs Vital signs: Vital Signs Temp Pulse Resp BP Pulse Ox 98.7 F 96 H 31 H 118/83 98 04/13/17 13:33 04/13/17 13:33 04/13/17 13:33 04/13/17 13:33 04/13/17 13:33 - General Appearance General appearance: well-developed, appears stated age, other (no distress) EENT: ATNC, PERRL, mucous membranes dry Neck: Present: neck supple, trachea midline Respiratory: Clear to Ascultation Heart: regular, S1S2, no murmurs Gastrointestinal: Present: normoactive bowel sounds. Absent: tenderness, distended Integumentary: no rash Neurologic: no focal deficit, no asterixis, CN 3-12 intact Musculoskeletal: Present: other (no edema) Psychiatric: mood/affect appropriate, cooperative Results - Lab Results 04/15/17 06:46 04/15/17 06:46 Most recent lab results Calcium 8.8 mg/dL (8.4-10.2) 04/14/17 07:59 Phosphorus 3.70 mg/dL (2.5-4.5) 04/13/17 14:51 Magnesium 2.30 mg/dL (1.7-2.3) 04/13/17 14:51 Assessment and Plan - Patient Problems (1) BRYCE (acute kidney injury) Current Visit: Yes Status: Acute Plan to address problem: Acute kidney injury is hemodynamically mediated in the setting of volume depletion. Continue IV fluids. Renal function is better. BUN is improving. (2) Prerenal azotemia Current Visit: Yes Status: Acute Plan to address problem: Improving. (3) Hyperkalemia Current Visit: Yes Status: Acute Plan to address problem: Improved. (4) Squamous cell carcinoma of lung, stage IV Current Visit: Yes Status: Chronic Qualifiers: Laterality: unspecified laterality Qualified Code(s): C34.90 - Malignant neoplasm of unspecified part of unspecified bronchus or lung (5) Respiratory distress Current Visit: Yes Status: Acute
[2017-04-14] MEDS: NYSTATIN PO SCH ×2 (10:00→13:34)
[2017-04-14] MEDS ORDERED: PNEUMOVAX 23 IM ONE (12:00)
[2017-04-14] MEDS ORDERED: Fluarix Quad 2017-2018(36 MOS+) IM ONE (12:00)
[2017-04-14] MEDS: MAGIC MOUTHWASH PO SCH ×2 (13:30→21:18)
--- NOTE | 2017-04-14 13:37 | Progress Note ---
Assessment and Plan Assessment and plan: 77 y/o female with pmh of Lung Ca ,COPD and HLD comes in for severe weakness and increasing SOB of 1 week duration and worsening. Feels very weak. On Chemo And XRT for Lung ca of 1 year duration. Cough productive of mucoid sputum. No fever or chills. No recent travel. Severe Sepsis * ID consulted, blood cultures with no growth so far. Repeat lactic acid. * Continue IV Zosyn Acute bronchitis * Antibiotics as noted above. COPD exacerbation * Continue nebulizer treatment. Steroid taper. * Consult pulmonary. Patient may need BiPAP. Acute respiratory failure with hypoxia * As noted above doing nebs, pulmonary valve, steroids. Oxygen therapy Hyperkalemia * Kayexalate given in ER . Squamous cell carcinoma of lung, stage IV * Dr Radford consulted.Her Oncologist HTN (hypertension) * Cont antihpertensives BRYCE (acute kidney injury) secondary to vasomotor nephropathy * Improving. Nephrology input noted. Continue patient on IV fluids. HLD (hyperlipidemia) * Cont statins DVT and GI prophylaxis Plan of care discussed with the patient in detail She verbalized understanding. History Interval history: Patient seen and examined this morning still with some shortness of breath but improving. Takes in between breaths while communicating. Unable to complete full sentences. Renal function has improved. Hospitalist Physical - Physical exam Narrative exam: VITAL SIGNS: Reviewed. GENERAL: Critically ill appearing, in moderate distress, secondary to respiratory.. Vital signs as documented. HEAD: No signs of head trauma. EYES: Pupils are equal. Extraocular motions intact. EARS: Hearing grossly intact. MOUTH: Oropharynx is normal. NECK: No adenopathy, no JVD. CHEST: Chest with diminished breath sounds bilaterally. Accessory muscle use. CARDIAC: Regular rate and rhythm. S1 and S2, without murmurs, gallops, or rubs. VASCULAR: No Edema. Peripheral pulses normal and equal in all extremities. ABDOMEN: Soft, without detectable tenderness. No sign of distention. No rebound or guarding, and no masses palpated. Bowel Sounds normal. MUSCULOSKELETAL: Good range of motion of all major joints. Extremities without clubbing, cyanosis or edema. NEUROLOGIC EXAM: Alert and oriented x 3. No focal sensory or strength deficits. Speech intermittent follows commands. PSYCHIATRIC: Mood anxious SKIN: No rash or lesions. - Constitutional Vitals: Temp Pulse Resp BP Pulse Ox 98.8 F 105 H 25 H 125/76 96 04/14/17 13:01 04/14/17 13:01 04/14/17 13:01 04/14/17 13:01 04/14/17 13:01 General appearance: Present: severe distress, well-nourished Results - Labs CBC & Chem 7: 04/14/17 04:46 04/14/17 07:59 Labs: Laboratory Last Values WBC 13.7 K/mm3 (4.5-11.0) H 04/14/17 04:46 RBC 4.65 M/mm3 (3.65-5.03) 04/14/17 04:46 Hgb 13.3 gm/dl (10.1-14.3) 04/14/17 04:46 Hct 40.2 % (30.3-42.9) 04/14/17 04:46 MCV 87 fl (79-97) 04/14/17 04:46 MCH 29 pg (28-32) 04/14/17 04:46 MCHC 33 % (30-34) 04/14/17 04:46 RDW 17.0 % (13.2-15.2) H 04/14/17 04:46 Plt Count 149 K/mm3 (140-440) 04/14/17 04:46 Add Manual Diff Complete 04/14/17 04:46 Total Counted 100 04/14/17 04:46 Seg Neutrophils % Death Clearance Coordinator 04/14/17 04:46 Seg Neuts % (Manual) 80.0 % (40.0-70.0) H 04/14/17 04:46 Band Neutrophils % 9.0 % 04/14/17 04:46 Lymphocytes % (Manual) 6.0 % (13.4-35.0) L 04/14/17 04:46 Reactive Lymphs % (Man) 0 % 04/14/17 04:46 Monocytes % (Manual) 5.0 % (0.0-7.3) 04/14/17 04:46 Eosinophils % (Manual) 0 % (0.0-4.3) 04/14/17 04:46 Basophils % (Manual) 0 % (0.0-1.8) 04/14/17 04:46 Metamyelocytes % 0 % 04/14/17 04:46 Myelocytes % 0 % 04/14/17 04:46 Promyelocytes % 0 % 04/14/17 04:46 Blast Cells % 0 % 04/14/17 04:46 Nucleated RBC % Not Reportable 04/14/17 04:46 Seg Neutrophils # Man 11.0 K/mm3 (1.8-7.7) H 04/14/17 04:46 Band Neutrophils # 1.2 K/mm3 04/14/17 04:46 Lymphocytes # (Manual) 0.8 K/mm3 (1.2-5.4) L 04/14/17 04:46 Abs React Lymphs (Man) 0.0 K/mm3 04/14/17 04:46 Monocytes # (Manual) 0.7 K/mm3 (0.0-0.8) 04/14/17 04:46 Eosinophils # (Manual) 0.0 K/mm3 (0.0-0.4) 04/14/17 04:46 Basophils # (Manual) 0.0 K/mm3 (0.0-0.1) 04/14/17 04:46 Metamyelocytes # 0.0 K/mm3 04/14/17 04:46 Myelocytes # 0.0 K/mm3 04/14/17 04:46 Promyelocytes # 0.0 K/mm3 04/14/17 04:46 Blast Cells # 0.0 K/mm3 04/14/17 04:46 WBC Morphology Not Reportable 04/14/17 04:46 Hypersegmented Neuts Not Reportable 04/14/17 04:46 Hyposegmented Neuts Not Reportable 04/14/17 04:46 Hypogranular Neuts Not Reportable 04/14/17 04:46 Smudge Cells Not Reportable 04/14/17 04:46 Toxic Granulation Not Reportable 04/14/17 04:46 Toxic Vacuolation Not Reportable 04/14/17 04:46 Dohle Bodies Not Reportable 04/14/17 04:46 Pelger-Huet Anomaly Not Reportable 04/14/17 04:46 Rima Rods Not Reportable 04/14/17 04:46 Platelet Estimate Appears normal 04/14/17 04:46 Clumped Platelets Not Reportable 04/14/17 04:46 Plt Clumps, EDTA Not Reportable 04/14/17 04:46 Large Platelets Not Reportable 04/14/17 04:46 Giant Platelets Not Reportable 04/14/17 04:46 Platelet Satelliting Not Reportable 04/14/17 04:46 Plt Morphology Comment Not Reportable 04/14/17 04:46 RBC Morphology Not Reportable 04/14/17 04:46 Dimorphic RBCs Not Reportable 04/14/17 04:46 Polychromasia Not Reportable 04/14/17 04:46 Hypochromasia Not Reportable 04/14/17 04:46 Poikilocytosis Not Reportable 04/14/17 04:46 Anisocytosis Few 04/14/17 04:46 Microcytosis Not Reportable 04/14/17 04:46 Macrocytosis Not Reportable 04/14/17 04:46 Spherocytes Not Reportable 04/14/17 04:46 Pappenheimer Bodies Not Reportable 04/14/17 04:46 Sickle Cells Not Reportable 04/14/17 04:46 Target Cells Not Reportable 04/14/17 04:46 Tear Drop Cells Not Reportable 04/14/17 04:46 Ovalocytes Not Reportable 04/14/17 04:46 Helmet Cells Not Reportable 04/14/17 04:46 Lopez-Eldred Bodies Not Reportable 04/14/17 04:46 Tazewell Rings Not Reportable 04/14/17 04:46 Poly Cells Not Reportable 04/14/17 04:46 Bite Cells Not Reportable 04/14/17 04:46 Crenated Cell Not Reportable 04/14/17 04:46 Elliptocytes Not Reportable 04/14/17 04:46 Acanthocytes (Spur) Not Reportable 04/14/17 04:46 Rouleaux Not Reportable 04/14/17 04:46 Hemoglobin C Crystals Not Reportable 04/14/17 04:46 Schistocytes Not Reportable 04/14/17 04:46 Malaria parasites Not Reportable 04/14/17 04:46 Brian Bodies Not Reportable 04/14/17 04:46 Hem Pathologist Commnt No 04/14/17 04:46 PT 13.7 Sec. (12.2-14.9) 04/13/17 14:51 INR 1.00 (0.87-1.13) 04/13/17 14:51 APTT < 20.0 Sec. (24.2-36.6) L 04/13/17 14:51 POC ABG pH 7.525 (7.35-7.45) H 04/13/17 14:37 POC ABG pCO2 28.5 (35-45) L 04/13/17 14:37 POC ABG pO2 92 (80-105) 04/13/17 14:37 POC ABG HCO3 23.5 04/13/17 14:37 POC ABG Total CO2 24 04/13/17 14:37 POC ABG O2 Sat 98 04/13/17 14:37 POC ABG Base Excess 1 04/13/17 14:37 FiO2 28 % 04/13/17 14:37 Sodium 136 mmol/L (137-145) L 04/14/17 07:59 Potassium 4.6 mmol/L (3.6-5.0) 04/14/17 07:59 Chloride 96.0 mmol/L (98-107) L 04/14/17 07:59 Carbon Dioxide 27 mmol/L (22-30) 04/14/17 07:59 Anion Gap 18 mmol/L 04/14/17 07:59 BUN 72 mg/dL (7-17) H 04/14/17 07:59 Creatinine 0.8 mg/dL (0.7-1.2) 04/14/17 07:59 Estimated GFR > 60 ml/min 04/14/17 07:59 BUN/Creatinine Ratio 90 % 04/14/17 07:59 Glucose 196 mg/dL (65-100) H 04/14/17 07:59 POC Glucose 175 (70-105) H 04/14/17 08:44 Lactic Acid 2.70 mmol/L (0.7-2.0) H* 04/14/17 10:39 Calcium 8.8 mg/dL (8.4-10.2) 04/14/17 07:59 Phosphorus 3.70 mg/dL (2.5-4.5) 04/13/17 14:51 Magnesium 2.30 mg/dL (1.7-2.3) 04/13/17 14:51 Total Bilirubin 0.30 mg/dL (0.1-1.2) 04/14/17 04:46 Direct Bilirubin < 0.2 mg/dL (0-0.2) 04/13/17 14:51 Indirect Bilirubin 0.1 mg/dL 04/13/17 14:51 AST 18 units/L (5-40) 04/14/17 04:46 ALT 19 units/L (7-56) 04/14/17 04:46 Alkaline Phosphatase 42 units/L (35-129) 04/14/17 04:46 Troponin T < 0.010 ng/mL (0.00-0.029) 04/13/17 14:51 NT-Pro-B Natriuret Pep 305.5 pg/mL (0-900) 04/13/17 14:51 Total Protein 6.0 g/dL (6.3-8.2) L 04/14/17 04:46 Albumin 3.3 g/dL (3.9-5) L 04/14/17 04:46 Albumin/Globulin Ratio 1.2 % 04/14/17 04:46 Blood Type A POSITIVE 04/13/17 14:50 Antibody Screen Negative 04/13/17 14:50 - Imaging and Cardiology Chest x-ray: image reviewed (no acute findings.)
[2017-04-14] MEDS ORDERED: NACL 0.9% 1000 ML 1,000 ML IV SCH (14:00)
--- NOTE | 2017-04-14 14:49 | Consultation ---
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 It seems like during the last radiotherapy section, patient was too weak and fell down to the floor. Patient denies any recent fever or chills, nausea, vomiting, diarrhea. She has had poor po intake. Patient reports she was given a course of oral fluconazole recently because she was found to have oral candidiasis. Cough is chronic but she has noted more mucous. In the emergency room, initial temperature was 98.7, heart rate 96, blood pressure 118/83, white count 7.2. Creatinine 1.3. Lactic acid 2.2. CXR was negative. Current Antimicrobials: Zosyn 04/14 Microbiology: Blood cultures: 04/13 ngtd Past History Past Medical History: other (parish cancer, COPD) Medications and Allergies Allergies Allergy/AdvReac Type Severity Reaction Status Date / Time niacin Allergy Severe Swelling Verified 04/13/17 13:55 IVP DYE Allergy Hives Uncoded 04/13/17 13:55 Home Medications Medication Instructions Recorded Confirmed Last Taken Type Albuterol (Nf) [Proventil TAB] 4 mg PO BID 12/16/15 04/13/17 12/15/15 History Hydrochlorothiazide [HCTZ] 25 mg PO QDAY 12/16/15 04/13/17 12/15/15 History LORazepam [Ativan] 0.5 mg PO BID 12/16/15 04/13/17 12/15/15 History Lisinopril [Zestril TAB] 10 mg PO QDAY 12/16/15 04/13/17 12/15/15 History Denosumab [Xgeva] 120 mg SUB-Q 04/13/17 Unknown History Dexamethasone [Decadron] 4 mg PO Q8H 04/13/17 04/13/17 Unknown History Opdivo 04/13/17 Unknown History Simvastatin [Zocor] 40 mg PO 04/13/17 Unknown History Theophylline Anhydrous 400 mg PO 04/13/17 Unknown History [Theophylline] Umeclidinium Brm/Vilanterol Tr 1 each IH 04/13/17 Unknown History [Anoro Ellipta 62.5-25 Mcg INH] Active Meds: Active Medications Acetaminophen (Tylenol) 650 mg PO Q4H PRN PRN Reason: Pain MILD(1-3)/Fever >100.5/GALVAN Albuterol (Proventil) 2.5 mg IH Q3HRT PRN PRN Reason: Wheezing Albuterol/Ipratropium (Duoneb *Not For Prn Use*) 1 ampul IH Q6HRT [facility] Last Admin: 04/14/17 14:18 Dose: 1 ampul Bisacodyl (Dulcolax) 10 mg ME QDAY PRN PRN Reason: Constipation unrelieved by MOM Famotidine (Pepcid) 20 mg PO BID [facility] Last Admin: 04/14/17 09:05 Dose: 20 mg Heparin Sodium (Porcine) (Heparin) 5,000 unit SUB-Q Q8HR [facility] Last Admin: 04/14/17 13:36 Dose: 5,000 unit Hydromorphone HCl (Dilaudid) 0.5 mg IV Q3H PRN PRN Reason: Pain , Severe (7-10) Last Admin: 04/13/17 23:21 Dose: 0.5 mg Piperacillin Sod/Tazobactam Sod (Zosyn/Ns 3.375gm/50ml) 3.375 gm in 50 mls @ 100 mls/hr IV Q8HR [facility] PRN Reason: Protocol Last Admin: 04/14/17 13:34 Dose: 100 mls/hr Sodium Chloride (Nacl 0.9% 1000 Ml) 1,000 mls @ 125 mls/hr IV DIRECT [facility] Insulin Aspart (Novolog) 0 units SUB-Q ACHS [facility] PRN Reason: Protocol Last Admin: 04/14/17 08:56 Dose: 2 units Lidocaine HCl (Magic Mouthwash) 10 ml PO Q6H [facility] Magnesium Hydroxide (Milk Of Magnesia) 30 ml PO Q4H PRN PRN Reason: Constipation Methylprednisolone Sodium Succinate (Solu-Medrol) 40 mg IV Q8HR [facility] Last Admin: 04/14/17 13:35 Dose: 40 mg Morphine Sulfate (Morphine) 2 mg IV Q3H PRN PRN Reason: Pain, Moderate (4-6) Last Admin: 04/13/17 18:00 Dose: 2 mg Nystatin (Nystatin) 100,000 unit PO TID ANN Last Admin: 04/14/17 13:34 Dose: 100,000 unit Ondansetron HCl (Zofran) 4 mg IV Q8H PRN PRN Reason: N/V unrelieved by Reglan Oxycodone/Acetaminophen (Percocet 5/325) 1 tab PO Q6H PRN PRN Reason: Pain, Moderate (4-6) Review of Systems All systems: negative (as per HPI) Physical Examination - Physical Exam Narrative exam: General appearance: Alert in NAD, conversant Eyes: anicteric sclerae, moist conjunctivae; no lid-lag; PERRLA HENT: Atraumatic; oropharynx clear Neck: Trachea midline; supple, no thyromegaly or lymphadenopathy Lungs: checo rhonchi. Right chest port CV: RRR, no murmurs Abdomen: Soft, non-tender; no masses or hepatosplenomegaly Extremities: No peripheral edema or extremity lymphadenopathy Skin: Normal temperature, turgor and texture; no rash, ulcers or subcutaneous nodules Psych: Appropriate affect, alert and oriented to person, place and time. Neuro: alert and oriented x 3. Moving all extermities Lines: No CVL / PICC - Constitutional Vitals: Vital Signs Temp Pulse Resp BP Pulse Ox 98.8 F 101 H 20 125/76 96 04/14/17 13:01 04/14/17 14:28 04/14/17 14:28 04/14/17 13:01 04/14/17 13:01 Temperature -Last 24 Hours Temperature 98.8 F Temperature 98.5 F Temperature 98.0 F Temperature 98.3 F Temperature 98.1 F Temperature 97.9 F Results - Labs CBC & Chem 7: 04/14/17 04:46 04/14/17 07:59 Labs: Abnormal lab results 04/14/17 04/14/17 04/14/17 Range/Units 04:46 04:46 07:59 WBC 13.7 H (4.5-11.0) K/mm3 RDW 17.0 H (13.2-15.2) % Seg Neuts % (Manual) 80.0 H (40.0-70.0) % Lymphocytes % (Manual) 6.0 L (13.4-35.0) % Seg Neutrophils # Man 11.0 H (1.8-7.7) K/mm3 Lymphocytes # (Manual) 0.8 L (1.2-5.4) K/mm3 Sodium 135 L 136 L (137-145) mmol/L Chloride 96.8 L 96.0 L (98-107) mmol/L BUN 78 H 72 H (7-17) mg/dL Glucose 189 H 196 H (65-100) mg/dL POC Glucose (70-105) Lactic Acid (0.7-2.0) mmol/L Total Protein 6.0 L (6.3-8.2) g/dL Albumin 3.3 L (3.9-5) g/dL 04/14/17 04/14/17 Range/Units 08:44 10:39 WBC (4.5-11.0) K/mm3 RDW (13.2-15.2) % Seg Neuts % (Manual) (40.0-70.0) % Lymphocytes % (Manual) (13.4-35.0) % Seg Neutrophils # Man (1.8-7.7) K/mm3 Lymphocytes # (Manual) (1.2-5.4) K/mm3 Sodium (137-145) mmol/L Chloride (98-107) mmol/L BUN (7-17) mg/dL Glucose (65-100) mg/dL POC Glucose 175 H (70-105) Lactic Acid 2.70 H* (0.7-2.0) mmol/L Total Protein (6.3-8.2) g/dL Albumin (3.9-5) g/dL Assessment and Plan Assessment: 1) SIRS: Present on admission, manifested by tachycardia, hypotension, leukocytosis, increased lactate. Etiology unclear - DDx. ? dehydration ?UTI ? pneumonia. 2) Recent oral candidiasis 3) Dysphagia/odynophagia ? ashley ? 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 Catherine Galeano MD Infectious Diseases Specialist [facility] ([facility]) M [phone] O [phone]
[2017-04-14] MEDS: DIFLUCAN 200 MG/100 ML BAG IV SCH (16:16)
[2017-04-14 16:19] LABS: Bilirubin,Urine NEG (Negative); Blood,Urine NEG (Negative); Ketones,Urine NEG (Negative); Leukocyte Esterase,Urine NEG (Negative); Mucus,Urine FEW /HPF; Nitrite,Urine NEG (Negative); Protein,Urine <15 mg/dL mg/dL (Negative); Urobilinogen,Urine < 2.0 mg/dL (<2.0)
[2017-04-14] MEDS: MORPHINE IV PRN (22:18)
--- NOTE | 2017-04-15 01:23 | Consultation ---
SUBJECTIVE: The patient is a known patient of [facility] with metastatic lung cancer. She had received radiation therapy to the lumbar spine which finished on 04/04/2017. She presented with increased weakness. Denies any diarrhea or nausea. The patient states that she just felt very weak. Presents to the hospital with severe dehydration. She has been given fluids. She is also placed on antibiotics. The patient feels better with the IV fluids and her appetite is coming back. PHYSICAL EXAMINATION: GENERAL: The patient is awake and oriented. HEENT: Reveals mouth to be dry. CHEST: clear bilaterally. CVS: Regular rate and rhythm. ABDOMEN: Soft. EXTREMITY: Has no edema. ASSESSMENT: Metastatic lung cancer with severe dehydration. Finished radiation therapy about 10 days ago. PLAN: At this time, agree with renal evaluation. Continue close monitoring. CBC is stable. We will follow. JOB# [id number] GKS/KATHLEEN
[2017-04-15] MEDS: MAGIC MOUTHWASH PO SCH ×4 (02:30→20:46)
[2017-04-15] MEDS: DUONEB *Not for PRN Use IH SCH ×4 (03:16→20:56)
[2017-04-15] MEDS: HEPARIN SUB-Q SCH ×3 (06:32→22:35)
[2017-04-15 07:12] LABS: Hematocrit 36.7 % (30.3-42.9); Hemoglobin 12.2 gm/dl (10.1-14.3); Mean Corpuscular HGB Conc 33 % (30-34); Mean Corpuscular Hemoglobin 29 pg (28-32); Mean Corpuscular Volume 87 fl (79-97); Platelet Count 125 K/mm3 (140-440); Red Blood Count 4.22 M/mm3 (3.65-5.03); Red Cell Distribution Width 17.2 % (13.2-15.2); White Blood Count 10.6 K/mm3 (4.5-11.0)
[2017-04-15 07:33] LABS: Anion Gap 16 mmol/L; BUN/Creatinine Ratio 60; Blood Urea Nitrogen 54 mg/dL (7-17); Calcium 7.8 mg/dL (8.4-10.2); Carbon Dioxide 25 mmol/L (22-30); Chloride 100.1 mmol/L (98-107); Glucose 167 mg/dL (65-100); Potassium 4.4 mmol/L (3.6-5.0); Sodium 137 mmol/L (137-145)
--- NOTE | 2017-04-15 08:35 | Progress Note ---
Assessment and Plan - Patient Problems (1) BRYCE (acute kidney injury) Current Visit: Yes Status: Acute Plan to address problem: Acute kidney injury is hemodynamically mediated in the setting of volume depletion. Renal function is better. BUN is improving. (2) Prerenal azotemia Current Visit: Yes Status: Acute Plan to address problem: Improving. (3) Hyperkalemia Current Visit: Yes Status: Acute Plan to address problem: Improved. (4) Respiratory distress Current Visit: Yes Status: Acute (5) Squamous cell carcinoma of lung, stage IV Current Visit: Yes Status: Chronic Qualifiers: Laterality: unspecified laterality Qualified Code(s): C34.90 - Malignant neoplasm of unspecified part of unspecified bronchus or lung Subjective Date of service: 04/15/17 Interval history: Patient is feeling better today. Objective - Vital Signs Vital signs: Vital Signs - 12hr 04/14/17 04/14/17 04/14/17 20:51 21:01 22:00 Temperature Pulse Rate Pulse Rate [ 95 H 97 H Anterior Bilateral Throughout] Respiratory Rate Respiratory 16 18 Rate [Anterior Bilateral Throughout] Blood Pressure Blood Pressure [Left] O2 Sat by Pulse 96 Oximetry 04/15/17 04/15/17 04/15/17 00:54 00:56 03:00 Temperature 97.4 F L Pulse Rate 100 H 100 H Pulse Rate [ Anterior Bilateral Throughout] Respiratory 20 Rate Respiratory Rate [Anterior Bilateral Throughout] Blood Pressure Blood Pressure 145/82 [Left] O2 Sat by Pulse 98 96 Oximetry 04/15/17 05:50 Temperature 97.4 F L Pulse Rate 88 Pulse Rate [ Anterior Bilateral Throughout] Respiratory 20 Rate Respiratory Rate [Anterior Bilateral Throughout] Blood Pressure 134/86 Blood Pressure [Left] O2 Sat by Pulse 99 Oximetry - General Appearance General appearance: well-developed, well-nourished, appears stated age, other ( no distress) EENT: ATNC, PERRL, mucous membranes moist, hearing intact Neck: no JVD, supple Respiratory: Present: Clear to Ascultation Cardiology: regular, S1S2, no murmurs Gastrointestinal: normoactive bowel sounds, no tenderness, no distended Integumentary: no rash, warm and dry Neurologic: no focal deficit, no asterixis, CN 3-12 intact Musculoskeletal: other (no edema) Psychiatric: mood/affect appropriate, cooperative - Lab 04/15/17 06:46 04/15/17 06:46 Most recent lab results Calcium 7.8 mg/dL (8.4-10.2) L 04/15/17 06:46 Phosphorus 3.70 mg/dL (2.5-4.5) 04/13/17 14:51 Magnesium 2.30 mg/dL (1.7-2.3) 04/13/17 14:51
[2017-04-15] MEDS: PERCOCET 5/325 PO PRN ×2 (09:01→19:28)
[2017-04-15] MEDS: PEPCID PO SCH ×2 (09:01→22:34)
[2017-04-15] MEDS: NOVOLOG SUB-Q SCH ×4 (09:04→22:34)
--- NOTE | 2017-04-15 09:16 | Hem/Onc Progress Note ---
Assessment and Plan Continue supportive care. Continue IV fluids. Upon discharge, she will see me in my office. Subjective Date of service: 04/15/17 Interval history: Patient feels a lot better. Tolerating by mouth. Denies any diarrhea and in fact has not had any stool since admission. Objective - Constitutional Vitals: Last Vital Signs Temp 97.4 F L 04/15/17 05:50 Pulse 88 04/15/17 05:50 Resp 20 04/15/17 05:50 BP 134/86 04/15/17 05:50 Pulse Ox 99 04/15/17 05:50 Pain Intensity (0-10): denies any pain General appearance: mild distress Performance status: 3-limited selfcare - Neck Neck: supple - Respiratory Respiratory effort: Positive: normal Respiratory: bilateral: diminished - Cardiovascular Rhythm: regular Extremities: No edema - Gastrointestinal General gastrointestinal: Present: soft - Labs Lab Results: Laboratory Results - last 24 hr 04/14/17 04/14/17 04/14/17 10:39 13:21 15:18 WBC RBC Hgb Hct MCV MCH MCHC RDW Plt Count Sodium Potassium Chloride Carbon Dioxide Anion Gap BUN Creatinine Estimated GFR BUN/Creatinine Ratio Glucose POC Glucose 312 H Lactic Acid 2.70 H* Calcium C-Reactive Protein 0.10 Urine Color Urine Turbidity Urine pH Ur Specific Lewis Urine Protein Urine Glucose (UA) Urine Ketones Urine Blood Urine Nitrite Urine Bilirubin Urine Urobilinogen Ur Leukocyte Esterase Urine WBC (Auto) Urine RBC (Auto) U Epithel Cells (Auto) Urine Mucus 04/14/17 04/14/17 04/14/17 16:07 16:49 21:51 WBC RBC Hgb Hct MCV MCH MCHC RDW Plt Count Sodium Potassium Chloride Carbon Dioxide Anion Gap BUN Creatinine Estimated GFR BUN/Creatinine Ratio Glucose POC Glucose 252 H 196 H Lactic Acid Calcium C-Reactive Protein Urine Color Yellow Urine Turbidity Clear Urine pH 5.0 Ur Specific Lewis 1.024 Urine Protein <15 mg/dl Urine Glucose (UA) Neg Urine Ketones Neg Urine Blood Neg Urine Nitrite Neg Urine Bilirubin Neg Urine Urobilinogen < 2.0 Ur Leukocyte Esterase Neg Urine WBC (Auto) 4.0 Urine RBC (Auto) 2.0 U Epithel Cells (Auto) 1.0 Urine Mucus Few 04/15/17 04/15/17 06:46 06:46 WBC 10.6 RBC 4.22 Hgb 12.2 Hct 36.7 MCV 87 MCH 29 MCHC 33 RDW 17.2 H Plt Count 125 L Sodium 137 Potassium 4.4 Chloride 100.1 Carbon Dioxide 25 Anion Gap 16 BUN 54 H Creatinine 0.9 Estimated GFR > 60 BUN/Creatinine Ratio 60 Glucose 167 H POC Glucose Lactic Acid Calcium 7.8 L C-Reactive Protein Urine Color Urine Turbidity Urine pH Ur Specific Lewis Urine Protein Urine Glucose (UA) Urine Ketones Urine Blood Urine Nitrite Urine Bilirubin Urine Urobilinogen Ur Leukocyte Esterase Urine WBC (Auto) Urine RBC (Auto) U Epithel Cells (Auto) Urine Mucus
--- NOTE | 2017-04-15 12:02 | Consultation ---
History of Present Illness Consult date: 04/15/17 Reason for consult: COPD, other (lung cancer) History of present illness: This is a very pleasant 77-year-old female, admitted to the hospital with history of lung cancer and progressive weakness associated with shortness of breath. The patient has prior history of lung cancer with bone metastases being seen by Dr. Castillo and recently having a round of radiotherapy/ chemotherapy. She started feeling weak and at one point having some breathing problems mostly fatigue which was of breath and chest congestion. She came to the hospital was admitted with COPD exacerbation symptoms. Since admission, she has been feeling improved, states her breathing stabilized once she was initiated on nebulizer therapy. She uses Anoro at home together with albuterol nebulizations and oxygen at 2 L/m. The patient denies any fevers chills, hemoptysis or acute chest pain. Past History Past Medical History: other (parish cancer, COPD) Medications and Allergies Allergies Allergy/AdvReac Type Severity Reaction Status Date / Time niacin Allergy Severe Swelling Verified 04/13/17 13:55 IVP DYE Allergy Hives Uncoded 04/13/17 13:55 Home Medications Medication Instructions Recorded Confirmed Last Taken Type Albuterol (Nf) [Proventil TAB] 4 mg PO BID 12/16/15 04/13/17 12/15/15 History Hydrochlorothiazide [HCTZ] 25 mg PO QDAY 12/16/15 04/13/17 12/15/15 History LORazepam [Ativan] 0.5 mg PO BID 12/16/15 04/13/17 12/15/15 History Lisinopril [Zestril TAB] 10 mg PO QDAY 12/16/15 04/13/17 12/15/15 History Denosumab [Xgeva] 120 mg SUB-Q QDAY 04/13/17 04/14/17 Unknown History Dexamethasone [Decadron] 4 mg PO Q8H 04/13/17 04/13/17 Unknown History Opdivo 04/13/17 Unknown History Simvastatin [Zocor] 40 mg PO QHS 04/13/17 04/14/17 Unknown History Theophylline Anhydrous 400 mg PO QDAY 04/13/17 04/14/17 Unknown History [Theophylline] Umeclidinium Brm/Vilanterol Tr 1 each IH 04/13/17 Unknown History [Anoro Ellipta 62.5-25 Mcg INH] Active Meds: Active Medications Acetaminophen (Tylenol) 650 mg PO Q4H PRN PRN Reason: Pain MILD(1-3)/Fever >100.5/GALVAN Albuterol (Proventil) 2.5 mg IH Q3HRT PRN PRN Reason: Wheezing Albuterol/Ipratropium (Duoneb *Not For Prn Use*) 1 ampul IH Q6HRT [facility] Last Admin: 04/15/17 08:22 Dose: 1 ampul Bisacodyl (Dulcolax) 10 mg AL QDAY PRN PRN Reason: Constipation unrelieved by MOM Famotidine (Pepcid) 20 mg PO BID [facility] Last Admin: 04/15/17 09:01 Dose: 20 mg Heparin Sodium (Porcine) (Heparin) 5,000 unit SUB-Q Q8HR [facility] Last Admin: 04/15/17 06:32 Dose: 5,000 unit Hydromorphone HCl (Dilaudid) 0.5 mg IV Q3H PRN PRN Reason: Pain , Severe (7-10) Last Admin: 04/13/17 23:21 Dose: 0.5 mg Sodium Chloride (Nacl 0.9% 1000 Ml) 1,000 mls @ 125 mls/hr IV DIRECT [facility] Last Admin: 04/14/17 16:18 Dose: 125 mls/hr Fluconazole (Diflucan) 200 mg in 100 mls @ 100 mls/hr IV Q24H [facility] PRN Reason: Protocol Last Admin: 04/14/17 16:16 Dose: 100 mls/hr Insulin Aspart (Novolog) 0 units SUB-Q ACHS [facility] PRN Reason: Protocol Last Admin: 04/15/17 09:04 Dose: 2 units Lidocaine HCl (Magic Mouthwash) 10 ml PO Q6H [facility] Last Admin: 04/15/17 09:01 Dose: 10 ml Magnesium Hydroxide (Milk Of Magnesia) 30 ml PO Q4H PRN PRN Reason: Constipation Methylprednisolone Sodium Succinate (Solu-Medrol) 40 mg IV Q8HR [facility] Last Admin: 04/15/17 06:33 Dose: 40 mg Morphine Sulfate (Morphine) 2 mg IV Q3H PRN PRN Reason: Pain, Moderate (4-6) Last Admin: 04/14/17 22:18 Dose: 2 mg Ondansetron HCl (Zofran) 4 mg IV Q8H PRN PRN Reason: N/V unrelieved by Reglan Oxycodone/Acetaminophen (Percocet 5/325) 1 tab PO Q6H PRN PRN Reason: Pain, Moderate (4-6) Last Admin: 04/15/17 09:01 Dose: 1 tab Review of Systems Constitutional: weight loss, anorexia, fatigue, malaise Cardiovascular: shortness of breath, no chest pain, no orthopnea, no palpitations, no edema Respiratory: cough, shortness of breath, dyspnea on exertion, wheezing Gastrointestinal: no abdominal pain, no nausea, no vomiting, no diarrhea, no BRBPR, no melena, no hematochezia Musculoskeletal: no neck pain Neurological: weakness, no paralysis, no parathesias, no numbness, no tingling, no seizures, no syncope Physical Examination Vital signs: Vital Signs Temp Pulse Resp BP Pulse Ox 98.7 F 96 H 31 H 118/83 98 04/13/17 13:33 04/13/17 13:33 04/13/17 13:33 04/13/17 13:33 04/13/17 13:33 General appearance: no acute distress, alert Eyes: non-icteric ENT: oropharynx moist Neck: supple Ascultation: Bilateral: clear (mostly clear with occasional rhonchi), diminished breath sounds Gastrointestinal: normoactive bowel sounds, non-distended Integumentary: normal Extremities: no cyanosis, no edema Musculoskeletal: no deformities normal mental status, non-focal exam, CN II-XII normal mood appropriate, affect normal Results - Laboratory Findings CBC and BMP: 04/15/17 06:46 04/15/17 06:46 ABG POC ABG pH 7.525 (7.35-7.45) H 04/13/17 14:37 POC ABG pCO2 28.5 (35-45) L 04/13/17 14:37 POC ABG pO2 92 (80-105) 04/13/17 14:37 POC ABG HCO3 23.5 04/13/17 14:37 POC ABG Total CO2 24 04/13/17 14:37 POC ABG O2 Sat 98 04/13/17 14:37 PT/INR, D-dimer PT 13.7 Sec. (12.2-14.9) 04/13/17 14:51 INR 1.00 (0.87-1.13) 04/13/17 14:51 Abnormal lab findings: Abnormal Labs 04/14/17 04/14/17 04/14/17 04:46 04:46 07:59 WBC 13.7 H RDW 17.0 H Plt Count Seg Neuts % (Manual) 80.0 H Lymphocytes % (Manual) 6.0 L Seg Neutrophils # Man 11.0 H Lymphocytes # (Manual) 0.8 L Sodium 135 L 136 L Chloride 96.8 L 96.0 L BUN 78 H 72 H Glucose 189 H 196 H POC Glucose Lactic Acid Calcium Total Protein 6.0 L Albumin 3.3 L 04/14/17 04/14/17 04/14/17 08:44 10:39 13:21 WBC RDW Plt Count Seg Neuts % (Manual) Lymphocytes % (Manual) Seg Neutrophils # Man Lymphocytes # (Manual) Sodium Chloride BUN Glucose POC Glucose 175 H 312 H Lactic Acid 2.70 H* Calcium Total Protein Albumin 04/14/17 04/14/17 04/15/17 16:49 21:51 06:46 WBC RDW 17.2 H Plt Count 125 L Seg Neuts % (Manual) Lymphocytes % (Manual) Seg Neutrophils # Man Lymphocytes # (Manual) Sodium Chloride BUN Glucose POC Glucose 252 H 196 H Lactic Acid Calcium Total Protein Albumin 04/15/17 06:46 WBC RDW Plt Count Seg Neuts % (Manual) Lymphocytes % (Manual) Seg Neutrophils # Man Lymphocytes # (Manual) Sodium Chloride BUN 54 H Glucose 167 H POC Glucose Lactic Acid Calcium 7.8 L Total Protein Albumin Assessment and Plan COPD exacerbation, appears to be controlled at this time. I don't see evidence of acute pneumonitis triggering her symptoms, on admission chest film review Stage IV lung cancer with bone metastases Question about SIRS raised by ID, see consult. Note pneumonia clinically or by x-ray evaluation. Former smoker Recommendations Continue oxygen support Ambulate patient and monitor oximetry. Adjust portable oxygen if necessary, currently on home 2 L/m; keep oximetry > 89% . Follow-up ID recommendations regarding antibiotics Update influenza and pneumonia vaccination, if not completed already. Inhaler therapy including LAMA ( Anoro 1 inh qd ) , at discharge. Nutritional support, weight reduction diet. DVT prophylaxis
--- NOTE | 2017-04-15 12:06 | Progress Note ---
Assessment and Plan Assessment: 1) SIRS: improving. Etiology unclear - DDx. ? dehydration ? Pneumonia. CRP=0.1 2) Recent oral candidiasis 3) Dysphagia/odynophagia ? ashley ? radiation injury 4) Lung cancer with metastasis to the spine: s/p chemo, currently on radiation 5) COPD Plan: -follow-up blood cultures and procalcitonin -repeat CXR today -continue zosyn and fluconazole day 2 -GI med eval if odynophagia does not improve I am rounding tomorrow Thank you Dr Sommer for your consultation, will follow up with you. Catherine Galeano MD Infectious Diseases Specialist [facility] M [phone] O [phone] Subjective Date of service: 04/15/17 Principal diagnosis: SIRS Interval history: Feels better, ate well for the first time in many days. Still odynophagia. No fever. Current Antimicrobials: Zosyn 04/14 Microbiology: Blood cultures: 04/13 ngtd Uirne cx 04/14 <10K Objective - Exam Narrative Exam: General appearance: Alert in NAD, conversant Eyes: anicteric sclerae, moist conjunctivae; no lid-lag; PERRLA HENT: Atraumatic; oropharynx clear Neck: Trachea midline; supple, no thyromegaly or lymphadenopathy Lungs: checo rhonchi. Right chest port CV: RRR, no murmurs Abdomen: Soft, non-tender; no masses or hepatosplenomegaly Extremities: No peripheral edema or extremity lymphadenopathy Skin: facial skin scaly nodules Psych: Appropriate affect, alert and oriented to person, place and time. Neuro: alert and oriented x 3. Moving all extermities Lines: No CVL / PICC - Constitutional Vitals: Vital Signs Temp Pulse Resp BP Pulse Ox 97.4 F L 88 20 134/86 99 04/15/17 05:50 04/15/17 05:50 04/15/17 05:50 04/15/17 05:50 04/15/17 05:50 Temperature -Last 24 Hours Temperature 97.4 F Temperature 97.4 F Temperature 98.4 F Temperature 97.8 F Temperature 98.8 F Temperature 98.5 F - Labs CBC & Chem 7: 04/15/17 06:46 04/15/17 06:46 Labs: Abnormal lab results 04/14/17 04/14/17 04/14/17 Range/Units 10:39 13:21 16:49 RDW (13.2-15.2) % Plt Count (140-440) K/mm3 BUN (7-17) mg/dL Glucose (65-100) mg/dL POC Glucose 312 H 252 H (70-105) Lactic Acid 2.70 H* (0.7-2.0) mmol/L Calcium (8.4-10.2) mg/dL 04/14/17 04/15/17 04/15/17 Range/Units 21:51 06:46 06:46 RDW 17.2 H (13.2-15.2) % Plt Count 125 L (140-440) K/mm3 BUN 54 H (7-17) mg/dL Glucose 167 H (65-100) mg/dL POC Glucose 196 H (70-105) Lactic Acid (0.7-2.0) mmol/L Calcium 7.8 L (8.4-10.2) mg/dL 04/15/17 04/15/17 Range/Units 07:55 11:58 RDW (13.2-15.2) % Plt Count (140-440) K/mm3 BUN (7-17) mg/dL Glucose (65-100) mg/dL POC Glucose 168 H 205 H (70-105) Lactic Acid (0.7-2.0) mmol/L Calcium (8.4-10.2) mg/dL
--- NOTE | 2017-04-15 14:34 | XRay Report ---
CHEST 2 VIEWS INDICATION: Evaluate for interval changes, possible pneumonia. COMPARISON: 04/13/2017 FINDINGS: Frontal and lateral chest radiographs again demonstrate normal cardiomediastinal silhouette and large, approximately 8-9 cm hiatal hernia. Stable right chest port tip about the cavoatrial junction. Mild aortic knob calcifications. Stable approximately 2.7 cm right upper lobe chronic infiltrate/mass, also noted on 09/15/2015 CXR and hypermetabolic on January [address] Mild left hilar/suprahilar/upper lobe fullness/mass may also again be noted. Grossly clear remainder lungs without pleural effusions or CHF. Demineralized bones with few lower thoracic spine degenerative spurring. CONCLUSION: No significant interval change with various other findings, as above in this patient with known lung cancer/bilateral upper lobe hypermetabolic masses and a large hiatal hernia, amongst others. Thank you for the opportunity to participate in this patient's care.
[2017-04-15] MEDS ORDERED: NACL 0.9% 1000 ML 1,000 ML IV ONE (14:52)
--- NOTE | 2017-04-15 14:55 | Progress Note ---
Assessment and Plan Assessment and plan: 77 y/o female with pmh of Lung Ca ,COPD and HLD comes in for severe weakness and increasing SOB of 1 week duration and worsening. Feels very weak. On Chemo And XRT for Lung ca of 1 year duration. Cough productive of mucoid sputum. No fever or chills. No recent travel. SIRS * ID consulted, blood cultures with no growth so far. Repeat lactic acid. * Continue IV Zosyn * Increase IV fluids rate to 125 Recent Oral ashley * Fluconazole added * With odynophagia and may need GI eval if not improving. Acute bronchitis * Antibiotics as noted above. COPD exacerbation * Continue nebulizer treatment. Steroid taper. * Consult pulmonary. Patient may need BiPAP. Acute respiratory failure with hypoxia * As noted above doing nebs, pulmonary valve, steroids. Oxygen therapy Hyperkalemia * Kayexalate given in ER . Squamous cell carcinoma of lung, stage IV * Dr Radford consulted.Her Oncologist HTN (hypertension) * Cont antihpertensives BRYCE (acute kidney injury) secondary to vasomotor nephropathy * Improving. Nephrology input noted. Continue patient on IV fluids. HLD (hyperlipidemia) * Cont statins DVT and GI prophylaxis Plan of care discussed with the patient in detail She verbalized understanding. History Interval history: Patient seen and examined she reports some improvement but not yet quite of her baseline. She is still lethargic with ambulation. Hospitalist Physical - Physical exam Narrative exam: VITAL SIGNS: Reviewed. GENERAL: Critically ill appearing. Vital signs as documented. HEAD: No signs of head trauma. EYES: Pupils are equal. Extraocular motions intact. EARS: Hearing grossly intact. MOUTH: Oropharynx is normal. NECK: No adenopathy, no JVD. CHEST: Chest with diminished breath sounds bilaterally. Accessory muscle use. CARDIAC: Regular rate and rhythm. S1 and S2, without murmurs, gallops, or rubs. VASCULAR: No Edema. Peripheral pulses normal and equal in all extremities. ABDOMEN: Soft, without detectable tenderness. No sign of distention. No rebound or guarding, and no masses palpated. Bowel Sounds normal. MUSCULOSKELETAL: Good range of motion of all major joints. Extremities without clubbing, cyanosis or edema. NEUROLOGIC EXAM: Alert and oriented x 3. No focal sensory or strength deficits. Overall lethargic. Speech is normal today. PSYCHIATRIC: Mood anxious SKIN: No rash or lesions. - Constitutional Vitals: Temp Pulse Resp BP Pulse Ox 97.4 F L 93 H 20 134/86 99 04/15/17 05:50 04/15/17 08:32 04/15/17 08:32 04/15/17 05:50 04/15/17 05:50 General appearance: Present: severe distress, well-nourished Results - Labs CBC & Chem 7: 04/15/17 06:46 04/15/17 06:46 Labs: Laboratory Last Values WBC 10.6 K/mm3 (4.5-11.0) 04/15/17 06:46 RBC 4.22 M/mm3 (3.65-5.03) 04/15/17 06:46 Hgb 12.2 gm/dl (10.1-14.3) 04/15/17 06:46 Hct 36.7 % (30.3-42.9) 04/15/17 06:46 MCV 87 fl (79-97) 04/15/17 06:46 MCH 29 pg (28-32) 04/15/17 06:46 MCHC 33 % (30-34) 04/15/17 06:46 RDW 17.2 % (13.2-15.2) H 04/15/17 06:46 Plt Count 125 K/mm3 (140-440) L 04/15/17 06:46 Add Manual Diff Complete 04/14/17 04:46 Total Counted 100 04/14/17 04:46 Seg Neutrophils % Census Taker 04/14/17 04:46 Seg Neuts % (Manual) 80.0 % (40.0-70.0) H 04/14/17 04:46 Band Neutrophils % 9.0 % 04/14/17 04:46 Lymphocytes % (Manual) 6.0 % (13.4-35.0) L 04/14/17 04:46 Reactive Lymphs % (Man) 0 % 04/14/17 04:46 Monocytes % (Manual) 5.0 % (0.0-7.3) 04/14/17 04:46 Eosinophils % (Manual) 0 % (0.0-4.3) 04/14/17 04:46 Basophils % (Manual) 0 % (0.0-1.8) 04/14/17 04:46 Metamyelocytes % 0 % 04/14/17 04:46 Myelocytes % 0 % 04/14/17 04:46 Promyelocytes % 0 % 04/14/17 04:46 Blast Cells % 0 % 04/14/17 04:46 Nucleated RBC % Not Reportable 04/14/17 04:46 Seg Neutrophils # Man 11.0 K/mm3 (1.8-7.7) H 04/14/17 04:46 Band Neutrophils # 1.2 K/mm3 04/14/17 04:46 Lymphocytes # (Manual) 0.8 K/mm3 (1.2-5.4) L 04/14/17 04:46 Abs React Lymphs (Man) 0.0 K/mm3 04/14/17 04:46 Monocytes # (Manual) 0.7 K/mm3 (0.0-0.8) 04/14/17 04:46 Eosinophils # (Manual) 0.0 K/mm3 (0.0-0.4) 04/14/17 04:46 Basophils # (Manual) 0.0 K/mm3 (0.0-0.1) 04/14/17 04:46 Metamyelocytes # 0.0 K/mm3 04/14/17 04:46 Myelocytes # 0.0 K/mm3 04/14/17 04:46 Promyelocytes # 0.0 K/mm3 04/14/17 04:46 Blast Cells # 0.0 K/mm3 04/14/17 04:46 WBC Morphology Not Reportable 04/14/17 04:46 Hypersegmented Neuts Not Reportable 04/14/17 04:46 Hyposegmented Neuts Not Reportable 04/14/17 04:46 Hypogranular Neuts Not Reportable 04/14/17 04:46 Smudge Cells Not Reportable 04/14/17 04:46 Toxic Granulation Not Reportable 04/14/17 04:46 Toxic Vacuolation Not Reportable 04/14/17 04:46 Dohle Bodies Not Reportable 04/14/17 04:46 Pelger-Huet Anomaly Not Reportable 04/14/17 04:46 Rima Rods Not Reportable 04/14/17 04:46 Platelet Estimate Appears normal 04/14/17 04:46 Clumped Platelets Not Reportable 04/14/17 04:46 Plt Clumps, EDTA Not Reportable 04/14/17 04:46 Large Platelets Not Reportable 04/14/17 04:46 Giant Platelets Not Reportable 04/14/17 04:46 Platelet Satelliting Not Reportable 04/14/17 04:46 Plt Morphology Comment Not Reportable 04/14/17 04:46 RBC Morphology Not Reportable 04/14/17 04:46 Dimorphic RBCs Not Reportable 04/14/17 04:46 Polychromasia Not Reportable 04/14/17 04:46 Hypochromasia Not Reportable 04/14/17 04:46 Poikilocytosis Not Reportable 04/14/17 04:46 Anisocytosis Few 04/14/17 04:46 Microcytosis Not Reportable 04/14/17 04:46 Macrocytosis Not Reportable 04/14/17 04:46 Spherocytes Not Reportable 04/14/17 04:46 Pappenheimer Bodies Not Reportable 04/14/17 04:46 Sickle Cells Not Reportable 04/14/17 04:46 Target Cells Not Reportable 04/14/17 04:46 Tear Drop Cells Not Reportable 04/14/17 04:46 Ovalocytes Not Reportable 04/14/17 04:46 Helmet Cells Not Reportable 04/14/17 04:46 Lopez-Pauline Bodies Not Reportable 04/14/17 04:46 Mobile Rings Not Reportable 04/14/17 04:46 Poly Cells Not Reportable 04/14/17 04:46 Bite Cells Not Reportable 04/14/17 04:46 Crenated Cell Not Reportable 04/14/17 04:46 Elliptocytes Not Reportable 04/14/17 04:46 Acanthocytes (Spur) Not Reportable 04/14/17 04:46 Rouleaux Not Reportable 04/14/17 04:46 Hemoglobin C Crystals Not Reportable 04/14/17 04:46 Schistocytes Not Reportable 04/14/17 04:46 Malaria parasites Not Reportable 04/14/17 04:46 Brian Bodies Not Reportable 04/14/17 04:46 Hem Pathologist Commnt No 04/14/17 04:46 PT 13.7 Sec. (12.2-14.9) 04/13/17 14:51 INR 1.00 (0.87-1.13) 04/13/17 14:51 APTT < 20.0 Sec. (24.2-36.6) L 04/13/17 14:51 POC ABG pH 7.525 (7.35-7.45) H 04/13/17 14:37 POC ABG pCO2 28.5 (35-45) L 04/13/17 14:37 POC ABG pO2 92 (80-105) 04/13/17 14:37 POC ABG HCO3 23.5 04/13/17 14:37 POC ABG Total CO2 24 04/13/17 14:37 POC ABG O2 Sat 98 04/13/17 14:37 POC ABG Base Excess 1 04/13/17 14:37 FiO2 28 % 04/13/17 14:37 Sodium 137 mmol/L (137-145) 04/15/17 06:46 Potassium 4.4 mmol/L (3.6-5.0) 04/15/17 06:46 Chloride 100.1 mmol/L (98-107) 04/15/17 06:46 Carbon Dioxide 25 mmol/L (22-30) 04/15/17 06:46 Anion Gap 16 mmol/L 04/15/17 06:46 BUN 54 mg/dL (7-17) H 04/15/17 06:46 Creatinine 0.9 mg/dL (0.7-1.2) 04/15/17 06:46 Estimated GFR > 60 ml/min 04/15/17 06:46 BUN/Creatinine Ratio 60 % 04/15/17 06:46 Glucose 167 mg/dL (65-100) H 04/15/17 06:46 POC Glucose 205 (70-105) H 04/15/17 11:58 Lactic Acid 3.10 mmol/L (0.7-2.0) H* 04/15/17 11:06 Calcium 7.8 mg/dL (8.4-10.2) L 04/15/17 06:46 Phosphorus 3.70 mg/dL (2.5-4.5) 04/13/17 14:51 Magnesium 2.30 mg/dL (1.7-2.3) 04/13/17 14:51 Total Bilirubin 0.30 mg/dL (0.1-1.2) 04/14/17 04:46 Direct Bilirubin < 0.2 mg/dL (0-0.2) 04/13/17 14:51 Indirect Bilirubin 0.1 mg/dL 04/13/17 14:51 AST 18 units/L (5-40) 04/14/17 04:46 ALT 19 units/L (7-56) 04/14/17 04:46 Alkaline Phosphatase 42 units/L (35-129) 04/14/17 04:46 Troponin T < 0.010 ng/mL (0.00-0.029) 04/13/17 14:51 C-Reactive Protein 0.10 mg/dL (0.00-1.30) 04/14/17 15:18 NT-Pro-B Natriuret Pep 305.5 pg/mL (0-900) 04/13/17 14:51 Total Protein 6.0 g/dL (6.3-8.2) L 04/14/17 04:46 Albumin 3.3 g/dL (3.9-5) L 04/14/17 04:46 Albumin/Globulin Ratio 1.2 % 04/14/17 04:46 Urine Color Yellow (Yellow) 04/14/17 16:07 Urine Turbidity Clear (Clear) 04/14/17 16:07 Urine pH 5.0 (5.0-7.0) 04/14/17 16:07 Ur Specific Williams 1.024 (1.003-1.030) 04/14/17 16:07 Urine Protein <15 mg/dl mg/dL (Negative) 04/14/17 16:07 Urine Glucose (UA) Neg mg/dL (Negative) 04/14/17 16:07 Urine Ketones Neg mg/dL (Negative) 04/14/17 16:07 Urine Blood Neg (Negative) 04/14/17 16:07 Urine Nitrite Neg (Negative) 04/14/17 16:07 Urine Bilirubin Neg (Negative) 04/14/17 16:07 Urine Urobilinogen < 2.0 mg/dL (<2.0) 04/14/17 16:07 Ur Leukocyte Esterase Neg (Negative) 04/14/17 16:07 Urine WBC (Auto) 4.0 /HPF (0.0-6.0) 04/14/17 16:07 Urine RBC (Auto) 2.0 /HPF (0.0-6.0) 04/14/17 16:07 U Epithel Cells (Auto) 1.0 /HPF (0-13.0) 04/14/17 16:07 Urine Mucus Few /HPF 04/14/17 16:07 Blood Type A POSITIVE 04/13/17 14:50 Antibody Screen Negative 04/13/17 14:50
[2017-04-15] MEDS: DIFLUCAN 200 MG/100 ML BAG IV SCH (16:17)
[2017-04-16] MEDS: DUONEB *Not for PRN Use IH SCH ×5 (01:53→21:30)
[2017-04-16] MEDS: MAGIC MOUTHWASH PO SCH ×4 (03:46→21:54)
[2017-04-16 06:07] LABS: Anion Gap 18 mmol/L; BUN/Creatinine Ratio 59; Blood Urea Nitrogen 41 mg/dL (7-17); Calcium 7.4 mg/dL (8.4-10.2); Carbon Dioxide 22 mmol/L (22-30); Chloride 104.3 mmol/L (98-107); Glucose 183 mg/dL (65-100); Potassium 4.9 mmol/L (3.6-5.0); Sodium 139 mmol/L (137-145)
[2017-04-16] MEDS: HEPARIN SUB-Q SCH ×3 (06:21→21:55)
[2017-04-16] MEDS: NOVOLOG SUB-Q SCH ×4 (07:23→21:56)
--- NOTE | 2017-04-16 10:09 | Progress Note ---
Assessment and Plan - Patient Problems (1) BRYCE (acute kidney injury) Current Visit: Yes Status: Acute (2) Acute respiratory failure Current Visit: Yes Status: Acute Qualifiers: Respiratory failure complication: hypoxia Qualified Code(s): J96.01 - Acute respiratory failure with hypoxia (3) Hyperkalemia Current Visit: Yes Status: Acute (4) Sepsis Current Visit: Yes Status: Acute Qualifiers: Sepsis type: sepsis due to unspecified organism Qualified Code(s): A41.9 - Sepsis, unspecified organism (5) Squamous cell carcinoma of lung, stage IV Current Visit: Yes Status: Chronic Qualifiers: Laterality: unspecified laterality Qualified Code(s): C34.90 - Malignant neoplasm of unspecified part of unspecified bronchus or lung (6) COPD (chronic obstructive pulmonary disease) Current Visit: Yes Status: Acute Qualifiers: COPD type: C Chronic bronchitis type: C Emphysema type: E Subjective Principal diagnosis: SIRS Interval history: Feels better, less shortness of breath Objective Vital Signs - 12hr 04/16/17 04/16/17 04/16/17 00:00 01:53 02:03 Temperature 97.8 F Pulse Rate 93 H Pulse Rate [ 91 H 87 Anterior Bilateral Throughout] Respiratory 18 Rate Respiratory 18 18 Rate [Anterior Bilateral Throughout] Blood Pressure 144/90 [Left] O2 Sat by Pulse 97 Oximetry 04/16/17 04/16/17 04/16/17 06:00 06:41 08:08 Temperature 98.0 F Pulse Rate 96 H 97 H Pulse Rate [ 92 H Anterior Bilateral Throughout] Respiratory 18 Rate Respiratory 20 Rate [Anterior Bilateral Throughout] Blood Pressure 144/93 [Left] O2 Sat by Pulse 97 Oximetry 04/16/17 04/16/17 08:15 08:18 Temperature Pulse Rate Pulse Rate [ 95 H Anterior Bilateral Throughout] Respiratory Rate Respiratory 18 Rate [Anterior Bilateral Throughout] Blood Pressure [Left] O2 Sat by Pulse 96 Oximetry Constitutional: no acute distress, alert Eyes: non-icteric ENT: oropharynx moist Neck: supple Ascultation: Bilateral: clear (mostly clear with occasional rhonchi distant), diminished breath sounds Gastrointestinal: normoactive bowel sounds, non-distended Integumentary: normal Extremities: no cyanosis, no edema Neurologic: normal mental status, non-focal exam, CN II-XII normal Psychiatric: mood appropriate, affect normal CBC and BMP: 04/15/17 06:46 04/16/17 05:10 ABG, PT/INR, D-dimer: ABG POC ABG pH 7.525 (7.35-7.45) H 04/13/17 14:37 POC ABG pCO2 28.5 (35-45) L 04/13/17 14:37 POC ABG pO2 92 (80-105) 04/13/17 14:37 POC ABG HCO3 23.5 04/13/17 14:37 POC ABG Total CO2 24 04/13/17 14:37 POC ABG O2 Sat 98 04/13/17 14:37 PT/INR, D-dimer PT 13.7 Sec. (12.2-14.9) 04/13/17 14:51 INR 1.00 (0.87-1.13) 04/13/17 14:51 Abnormal lab findings: Abnormal Labs 04/14/17 04/14/17 04/14/17 04:46 04:46 07:59 WBC 13.7 H RDW 17.0 H Plt Count Seg Neuts % (Manual) 80.0 H Lymphocytes % (Manual) 6.0 L Seg Neutrophils # Man 11.0 H Lymphocytes # (Manual) 0.8 L Sodium 135 L 136 L Chloride 96.8 L 96.0 L BUN 78 H 72 H Glucose 189 H 196 H POC Glucose Lactic Acid Calcium Total Protein 6.0 L Albumin 3.3 L 04/14/17 04/14/17 04/14/17 08:44 10:39 13:21 WBC RDW Plt Count Seg Neuts % (Manual) Lymphocytes % (Manual) Seg Neutrophils # Man Lymphocytes # (Manual) Sodium Chloride BUN Glucose POC Glucose 175 H 312 H Lactic Acid 2.70 H* Calcium Total Protein Albumin 04/14/17 04/14/17 04/15/17 16:49 21:51 06:46 WBC RDW 17.2 H Plt Count 125 L Seg Neuts % (Manual) Lymphocytes % (Manual) Seg Neutrophils # Man Lymphocytes # (Manual) Sodium Chloride BUN Glucose POC Glucose 252 H 196 H Lactic Acid Calcium Total Protein Albumin 04/15/17 04/15/17 04/15/17 06:46 07:55 11:06 WBC RDW Plt Count Seg Neuts % (Manual) Lymphocytes % (Manual) Seg Neutrophils # Man Lymphocytes # (Manual) Sodium Chloride BUN 54 H Glucose 167 H POC Glucose 168 H Lactic Acid 3.10 H* Calcium 7.8 L Total Protein Albumin 04/15/17 04/15/17 04/15/17 11:58 15:34 21:04 WBC RDW Plt Count Seg Neuts % (Manual) Lymphocytes % (Manual) Seg Neutrophils # Man Lymphocytes # (Manual) Sodium Chloride BUN Glucose POC Glucose 205 H 262 H 289 H Lactic Acid Calcium Total Protein Albumin 04/16/17 04/16/17 04/16/17 05:10 05:10 07:55 WBC RDW Plt Count Seg Neuts % (Manual) Lymphocytes % (Manual) Seg Neutrophils # Man Lymphocytes # (Manual) Sodium Chloride BUN 41 H Glucose 183 H POC Glucose 190 H Lactic Acid 2.80 H* Calcium 7.4 L Total Protein Albumin
[2017-04-16] MEDS: PEPCID PO SCH ×2 (12:50→21:54)
[2017-04-16] MEDS: TYLENOL PO PRN ×2 (12:50→20:30)
--- NOTE | 2017-04-16 14:03 | Progress Note ---
Assessment and Plan Assessment and plan: 77 y/o female with pmh of Lung Ca ,COPD and HLD comes in for severe weakness and increasing SOB of 1 week duration and worsening. Feels very weak. On Chemo And XRT for Lung ca of 1 year duration. Cough productive of mucoid sputum. No fever or chills. No recent travel. SIRS * ID consulted, blood cultures with no growth so far. Repeat lactic acid still elevated but improved. * Continue IV Zosyn AND FLUCONAZOLE * continue hydration Recent Oral ashley * Fluconazole added * With odynophagia and may need GI eval if not improving. Acute bronchitis * Antibiotics as noted above. COPD exacerbation * Continue nebulizer treatment. Steroid taper. * Consult pulmonary. Patient may need BiPAP. Acute respiratory failure with hypoxia * As noted above doing nebs, pulmonary valve, steroids. Oxygen therapy Hyperkalemia * corrected with Kayexalate given in ER . Squamous cell carcinoma of lung, stage IV * Dr Radford consulted.Her Oncologist HTN (hypertension) * Cont antihpertensives BRYCE (acute kidney injury) secondary to vasomotor nephropathy * Improving. Nephrology input noted. Continue patient on IV fluids. HLD (hyperlipidemia) * Cont statins DVT and GI prophylaxis Plan of care discussed with the patient in detail She verbalized understanding. Await, PT/OT eval. Anticipate discharge in AM if continues to improve. History Interval history: Patient seen and examined she reports some improvement but not yet quite of her baseline. Hospitalist Physical - Physical exam Narrative exam: VITAL SIGNS: Reviewed. GENERAL: Critically ill appearing. Vital signs as documented. HEAD: No signs of head trauma. EYES: Pupils are equal. Extraocular motions intact. EARS: Hearing grossly intact. MOUTH: Oropharynx is normal. NECK: No adenopathy, no JVD. CHEST: Chest with diminished breath sounds bilaterally. Accessory muscle use. CARDIAC: Regular rate and rhythm. S1 and S2, without murmurs, gallops, or rubs. VASCULAR: No Edema. Peripheral pulses normal and equal in all extremities. ABDOMEN: Soft, without detectable tenderness. No sign of distention. No rebound or guarding, and no masses palpated. Bowel Sounds normal. MUSCULOSKELETAL: Good range of motion of all major joints. Extremities without clubbing, cyanosis or edema. NEUROLOGIC EXAM: Alert and oriented x 3. No focal sensory or strength deficits. Overall lethargic. Speech is normal today. PSYCHIATRIC: Mood anxious SKIN: No rash or lesions. - Constitutional Vitals: Temp Pulse Resp BP Pulse Ox 98.0 F 95 H 18 144/93 96 04/16/17 06:41 04/16/17 08:18 04/16/17 08:18 04/16/17 06:41 04/16/17 08:15 General appearance: Present: severe distress, well-nourished Results - Labs CBC & Chem 7: 04/15/17 06:46 04/16/17 05:10 Labs: Laboratory Last Values WBC 10.6 K/mm3 (4.5-11.0) 04/15/17 06:46 RBC 4.22 M/mm3 (3.65-5.03) 04/15/17 06:46 Hgb 12.2 gm/dl (10.1-14.3) 04/15/17 06:46 Hct 36.7 % (30.3-42.9) 04/15/17 06:46 MCV 87 fl (79-97) 04/15/17 06:46 MCH 29 pg (28-32) 04/15/17 06:46 MCHC 33 % (30-34) 04/15/17 06:46 RDW 17.2 % (13.2-15.2) H 04/15/17 06:46 Plt Count 125 K/mm3 (140-440) L 04/15/17 06:46 Add Manual Diff Complete 04/14/17 04:46 Total Counted 100 04/14/17 04:46 Seg Neutrophils % Equipment Manager 04/14/17 04:46 Seg Neuts % (Manual) 80.0 % (40.0-70.0) H 04/14/17 04:46 Band Neutrophils % 9.0 % 04/14/17 04:46 Lymphocytes % (Manual) 6.0 % (13.4-35.0) L 04/14/17 04:46 Reactive Lymphs % (Man) 0 % 04/14/17 04:46 Monocytes % (Manual) 5.0 % (0.0-7.3) 04/14/17 04:46 Eosinophils % (Manual) 0 % (0.0-4.3) 04/14/17 04:46 Basophils % (Manual) 0 % (0.0-1.8) 04/14/17 04:46 Metamyelocytes % 0 % 04/14/17 04:46 Myelocytes % 0 % 04/14/17 04:46 Promyelocytes % 0 % 04/14/17 04:46 Blast Cells % 0 % 04/14/17 04:46 Nucleated RBC % Not Reportable 04/14/17 04:46 Seg Neutrophils # Man 11.0 K/mm3 (1.8-7.7) H 04/14/17 04:46 Band Neutrophils # 1.2 K/mm3 04/14/17 04:46 Lymphocytes # (Manual) 0.8 K/mm3 (1.2-5.4) L 04/14/17 04:46 Abs React Lymphs (Man) 0.0 K/mm3 04/14/17 04:46 Monocytes # (Manual) 0.7 K/mm3 (0.0-0.8) 04/14/17 04:46 Eosinophils # (Manual) 0.0 K/mm3 (0.0-0.4) 04/14/17 04:46 Basophils # (Manual) 0.0 K/mm3 (0.0-0.1) 04/14/17 04:46 Metamyelocytes # 0.0 K/mm3 04/14/17 04:46 Myelocytes # 0.0 K/mm3 04/14/17 04:46 Promyelocytes # 0.0 K/mm3 04/14/17 04:46 Blast Cells # 0.0 K/mm3 04/14/17 04:46 WBC Morphology Not Reportable 04/14/17 04:46 Hypersegmented Neuts Not Reportable 04/14/17 04:46 Hyposegmented Neuts Not Reportable 04/14/17 04:46 Hypogranular Neuts Not Reportable 04/14/17 04:46 Smudge Cells Not Reportable 04/14/17 04:46 Toxic Granulation Not Reportable 04/14/17 04:46 Toxic Vacuolation Not Reportable 04/14/17 04:46 Dohle Bodies Not Reportable 04/14/17 04:46 Pelger-Huet Anomaly Not Reportable 04/14/17 04:46 Riam Rods Not Reportable 04/14/17 04:46 Platelet Estimate Appears normal 04/14/17 04:46 Clumped Platelets Not Reportable 04/14/17 04:46 Plt Clumps, EDTA Not Reportable 04/14/17 04:46 Large Platelets Not Reportable 04/14/17 04:46 Giant Platelets Not Reportable 04/14/17 04:46 Platelet Satelliting Not Reportable 04/14/17 04:46 Plt Morphology Comment Not Reportable 04/14/17 04:46 RBC Morphology Not Reportable 04/14/17 04:46 Dimorphic RBCs Not Reportable 04/14/17 04:46 Polychromasia Not Reportable 04/14/17 04:46 Hypochromasia Not Reportable 04/14/17 04:46 Poikilocytosis Not Reportable 04/14/17 04:46 Anisocytosis Few 04/14/17 04:46 Microcytosis Not Reportable 04/14/17 04:46 Macrocytosis Not Reportable 04/14/17 04:46 Spherocytes Not Reportable 04/14/17 04:46 Pappenheimer Bodies Not Reportable 04/14/17 04:46 Sickle Cells Not Reportable 04/14/17 04:46 Target Cells Not Reportable 04/14/17 04:46 Tear Drop Cells Not Reportable 04/14/17 04:46 Ovalocytes Not Reportable 04/14/17 04:46 Helmet Cells Not Reportable 04/14/17 04:46 [place] Bodies Not Reportable 04/14/17 04:46 [place] Rings Not Reportable 04/14/17 04:46 Poly Cells Not Reportable 04/14/17 04:46 Bite Cells Not Reportable 04/14/17 04:46 Crenated Cell Not Reportable 04/14/17 04:46 Elliptocytes Not Reportable 04/14/17 04:46 Acanthocytes (Spur) Not Reportable 04/14/17 04:46 Rouleaux Not Reportable 04/14/17 04:46 Hemoglobin C Crystals Not Reportable 04/14/17 04:46 Schistocytes Not Reportable 04/14/17 04:46 Malaria parasites Not Reportable 04/14/17 04:46 Brian Bodies Not Reportable 04/14/17 04:46 Hem Pathologist Commnt No 04/14/17 04:46 PT 13.7 Sec. (12.2-14.9) 04/13/17 14:51 INR 1.00 (0.87-1.13) 04/13/17 14:51 APTT < 20.0 Sec. (24.2-36.6) L 04/13/17 14:51 POC ABG pH 7.525 (7.35-7.45) H 04/13/17 14:37 POC ABG pCO2 28.5 (35-45) L 04/13/17 14:37 POC ABG pO2 92 (80-105) 04/13/17 14:37 POC ABG HCO3 23.5 04/13/17 14:37 POC ABG Total CO2 24 04/13/17 14:37 POC ABG O2 Sat 98 04/13/17 14:37 POC ABG Base Excess 1 04/13/17 14:37 FiO2 28 % 04/13/17 14:37 Sodium 139 mmol/L (137-145) 04/16/17 05:10 Potassium 4.9 mmol/L (3.6-5.0) 04/16/17 05:10 Chloride 104.3 mmol/L (98-107) 04/16/17 05:10 Carbon Dioxide 22 mmol/L (22-30) 04/16/17 05:10 Anion Gap 18 mmol/L 04/16/17 05:10 BUN 41 mg/dL (7-17) H 04/16/17 05:10 Creatinine 0.7 mg/dL (0.7-1.2) 04/16/17 05:10 Estimated GFR > 60 ml/min 04/16/17 05:10 BUN/Creatinine Ratio 59 % 04/16/17 05:10 Glucose 183 mg/dL (65-100) H 04/16/17 05:10 POC Glucose 190 (70-105) H 04/16/17 07:55 Lactic Acid 2.80 mmol/L (0.7-2.0) H* 04/16/17 05:10 Calcium 7.4 mg/dL (8.4-10.2) L 04/16/17 05:10 Phosphorus 3.70 mg/dL (2.5-4.5) 04/13/17 14:51 Magnesium 2.30 mg/dL (1.7-2.3) 04/13/17 14:51 Total Bilirubin 0.30 mg/dL (0.1-1.2) 04/14/17 04:46 Direct Bilirubin < 0.2 mg/dL (0-0.2) 04/13/17 14:51 Indirect Bilirubin 0.1 mg/dL 04/13/17 14:51 AST 18 units/L (5-40) 04/14/17 04:46 ALT 19 units/L (7-56) 04/14/17 04:46 Alkaline Phosphatase 42 units/L (35-129) 04/14/17 04:46 Troponin T < 0.010 ng/mL (0.00-0.029) 04/13/17 14:51 C-Reactive Protein 0.10 mg/dL (0.00-1.30) 04/14/17 15:18 NT-Pro-B Natriuret Pep 305.5 pg/mL (0-900) 04/13/17 14:51 Total Protein 6.0 g/dL (6.3-8.2) L 04/14/17 04:46 Albumin 3.3 g/dL (3.9-5) L 04/14/17 04:46 Albumin/Globulin Ratio 1.2 % 04/14/17 04:46 Urine Color Yellow (Yellow) 04/14/17 16:07 Urine Turbidity Clear (Clear) 04/14/17 16:07 Urine pH 5.0 (5.0-7.0) 04/14/17 16:07 Ur Specific [place] 1.024 (1.003-1.030) 04/14/17 16:07 Urine Protein <15 mg/dl mg/dL (Negative) 04/14/17 16:07 Urine Glucose (UA) Neg mg/dL (Negative) 04/14/17 16:07 Urine Ketones Neg mg/dL (Negative) 04/14/17 16:07 Urine Blood Neg (Negative) 04/14/17 16:07 Urine Nitrite Neg (Negative) 04/14/17 16:07 Urine Bilirubin Neg (Negative) 04/14/17 16:07 Urine Urobilinogen < 2.0 mg/dL (<2.0) 04/14/17 16:07 Ur Leukocyte Esterase Neg (Negative) 04/14/17 16:07 Urine WBC (Auto) 4.0 /HPF (0.0-6.0) 04/14/17 16:07 Urine RBC (Auto) 2.0 /HPF (0.0-6.0) 04/14/17 16:07 U Epithel Cells (Auto) 1.0 /HPF (0-13.0) 04/14/17 16:07 Urine Mucus Few /HPF 04/14/17 16:07 Blood Type A POSITIVE 04/13/17 14:50 Antibody Screen Negative 04/13/17 14:50
[2017-04-16] MEDS: DIFLUCAN 200 MG/100 ML BAG IV SCH (16:22)
[2017-04-17] MEDS: MAGIC MOUTHWASH PO SCH ×4 (01:54→23:16)
[2017-04-17] MEDS: TYLENOL PO PRN ×3 (01:57→22:47)
[2017-04-17] MEDS: DUONEB *Not for PRN Use IH SCH ×4 (03:15→20:41)
[2017-04-17] MEDS: HEPARIN SUB-Q SCH ×3 (05:54→22:48)
[2017-04-17] MEDS: NOVOLOG SUB-Q SCH ×4 (07:30→22:49)
[2017-04-17] MEDS: PEPCID PO SCH ×2 (10:55→22:48)
--- NOTE | 2017-04-17 11:15 | Progress Note ---
Assessment and Plan - Patient Problems (1) BRYCE (acute kidney injury) Current Visit: Yes Status: Acute (2) Acute respiratory failure Current Visit: Yes Status: Acute Qualifiers: Respiratory failure complication: hypoxia Qualified Code(s): J96.01 - Acute respiratory failure with hypoxia (3) Hyperkalemia Current Visit: Yes Status: Acute (4) Sepsis Current Visit: Yes Status: Acute Qualifiers: Sepsis type: sepsis due to unspecified organism Qualified Code(s): A41.9 - Sepsis, unspecified organism (5) Squamous cell carcinoma of lung, stage IV Current Visit: Yes Status: Chronic Qualifiers: Laterality: unspecified laterality Qualified Code(s): C34.90 - Malignant neoplasm of unspecified part of unspecified bronchus or lung (6) COPD (chronic obstructive pulmonary disease) Current Visit: Yes Status: Acute Qualifiers: COPD type: C Chronic bronchitis type: C Emphysema type: E Subjective Principal diagnosis: SIRS Interval history: awake, no new complaints Objective Vital Signs - 12hr 04/17/17 04:00 Temperature 98.2 F Pulse Rate 84 Respiratory 18 Rate Blood Pressure 152/89 [Left] O2 Sat by Pulse 97 Oximetry Constitutional: no acute distress, alert Eyes: non-icteric ENT: oropharynx moist Neck: supple Ascultation: Bilateral: clear (mostly clear with occasional rhonchi distant), diminished breath sounds Gastrointestinal: normoactive bowel sounds, non-distended Integumentary: normal Extremities: no cyanosis, no edema Neurologic: normal mental status, non-focal exam, CN II-XII normal Psychiatric: mood appropriate, affect normal CBC and BMP: 04/15/17 06:46 04/16/17 05:10 ABG, PT/INR, D-dimer: ABG POC ABG pH 7.525 (7.35-7.45) H 04/13/17 14:37 POC ABG pCO2 28.5 (35-45) L 04/13/17 14:37 POC ABG pO2 92 (80-105) 04/13/17 14:37 POC ABG HCO3 23.5 04/13/17 14:37 POC ABG Total CO2 24 04/13/17 14:37 POC ABG O2 Sat 98 04/13/17 14:37 PT/INR, D-dimer PT 13.7 Sec. (12.2-14.9) 04/13/17 14:51 INR 1.00 (0.87-1.13) 04/13/17 14:51 Abnormal lab findings: Abnormal Labs 04/14/17 04/14/17 04/14/17 04:46 04:46 07:59 WBC 13.7 H RDW 17.0 H Plt Count Seg Neuts % (Manual) 80.0 H Lymphocytes % (Manual) 6.0 L Seg Neutrophils # Man 11.0 H Lymphocytes # (Manual) 0.8 L Sodium 135 L 136 L Chloride 96.8 L 96.0 L BUN 78 H 72 H Glucose 189 H 196 H POC Glucose Lactic Acid Calcium Total Protein 6.0 L Albumin 3.3 L 04/14/17 04/14/17 04/14/17 08:44 10:39 13:21 WBC RDW Plt Count Seg Neuts % (Manual) Lymphocytes % (Manual) Seg Neutrophils # Man Lymphocytes # (Manual) Sodium Chloride BUN Glucose POC Glucose 175 H 312 H Lactic Acid 2.70 H* Calcium Total Protein Albumin 04/14/17 04/14/17 04/15/17 16:49 21:51 06:46 WBC RDW 17.2 H Plt Count 125 L Seg Neuts % (Manual) Lymphocytes % (Manual) Seg Neutrophils # Man Lymphocytes # (Manual) Sodium Chloride BUN Glucose POC Glucose 252 H 196 H Lactic Acid Calcium Total Protein Albumin 04/15/17 04/15/17 04/15/17 06:46 07:55 11:06 WBC RDW Plt Count Seg Neuts % (Manual) Lymphocytes % (Manual) Seg Neutrophils # Man Lymphocytes # (Manual) Sodium Chloride BUN 54 H Glucose 167 H POC Glucose 168 H Lactic Acid 3.10 H* Calcium 7.8 L Total Protein Albumin 04/15/17 04/15/17 04/15/17 11:58 15:34 21:04 WBC RDW Plt Count Seg Neuts % (Manual) Lymphocytes % (Manual) Seg Neutrophils # Man Lymphocytes # (Manual) Sodium Chloride BUN Glucose POC Glucose 205 H 262 H 289 H Lactic Acid Calcium Total Protein Albumin 04/16/17 04/16/17 04/16/17 05:10 05:10 07:55 WBC RDW Plt Count Seg Neuts % (Manual) Lymphocytes % (Manual) Seg Neutrophils # Man Lymphocytes # (Manual) Sodium Chloride BUN 41 H Glucose 183 H POC Glucose 190 H Lactic Acid 2.80 H* Calcium 7.4 L Total Protein Albumin 04/16/17 04/16/17 04/16/17 11:43 16:44 20:34 WBC RDW Plt Count Seg Neuts % (Manual) Lymphocytes % (Manual) Seg Neutrophils # Man Lymphocytes # (Manual) Sodium Chloride BUN Glucose POC Glucose 252 H 245 H 232 H Lactic Acid Calcium Total Protein Albumin 04/17/17 08:02 WBC RDW Plt Count Seg Neuts % (Manual) Lymphocytes % (Manual) Seg Neutrophils # Man Lymphocytes # (Manual) Sodium Chloride BUN Glucose POC Glucose 196 H Lactic Acid Calcium Total Protein Albumin
--- NOTE | 2017-04-17 17:31 | Progress Note ---
Assessment and Plan 77 y/o female with pmh of Lung Ca ,COPD and HLD comes in for severe weakness and increasing SOB of 1 week duration and worsening. Feels very weak. On Chemo And XRT for Lung ca of 1 year duration. Cough productive of mucoid sputum. No fever or chills. No recent travel. SIRS ID consulted, blood cultures with no growth so far. Repeat lactic acid still elevated but improved. Continue IV Zosyn AND FLUCONAZOLE continue hydration Recent Oral ashley Fluconazole added With odynophagia and may need GI eval if not improving. Acute bronchitis Antibiotics as noted above. COPD exacerbation Continue nebulizer treatment. Steroid taper. Consult pulmonary. Patient may need BiPAP. Acute respiratory failure with hypoxia As noted above doing nebs, pulmonary valve, steroids. Oxygen therapy Hyperkalemia corrected with Kayexalate given in ER . Squamous cell carcinoma of lung, stage IV Dr Radford consulted.Her Oncologist HTN (hypertension) Cont antihpertensives BRYCE (acute kidney injury) secondary to vasomotor nephropathy Improving. Nephrology input noted. Continue patient on IV fluids. HLD (hyperlipidemia) Cont statins DVT and GI prophylaxis Plan of care discussed with the patient in detail She verbalized understanding. Await, PT/OT eval. Anticipate discharge in AM if continues to improve. Subjective Date of service: 04/17/17 Principal diagnosis: SIRS Interval history: Still feeling weak with shortness of breath of slight exertion Objective - Exam Narrative Exam: GEN: Well-developed well-nourished. ill-appearing female HEENT: NC/AT, PERRL. No rhionorrhea NECK: Supple, no adenopathy, no thyromegaly, no JVD CVS/HEART: RRR, S1S2 normal. No R/M/G. Pulses present bilaterally CHEST/LUNGS: Symmetrical chest expansion, decreased air entry bilaterally, CTA Cecilio GI/Abdomen: Soft, NTND, good bowel sounds, no guarding or rebound /Bladder: No suprapubic tenderness, no CVA EXT: No c/c/e Skin: No obvious rash MSK: Spontaneous movement x 4 Neuro: A & O x 3. None focal seen moving all limbs Psych: Calm. No SI or HI - Constitutional Vitals: Vital Signs - 12hr 04/17/17 04/17/17 04/17/17 08:27 08:37 10:00 Pulse Rate Pulse Rate [ 88 89 Anterior Bilateral Throughout] Pulse Rate [ 86 From Monitor] Respiratory Rate Respiratory 20 20 Rate [Anterior Bilateral Throughout] O2 Sat by Pulse 97 Oximetry 04/17/17 04/17/17 04/17/17 13:50 14:00 14:22 Pulse Rate Pulse Rate [ 97 H 100 H Anterior Bilateral Throughout] Pulse Rate [ From Monitor] Respiratory 24 Rate Respiratory 20 20 Rate [Anterior Bilateral Throughout] O2 Sat by Pulse Oximetry 04/17/17 15:00 Pulse Rate 86 Pulse Rate [ Anterior Bilateral Throughout] Pulse Rate [ From Monitor] Respiratory Rate Respiratory Rate [Anterior Bilateral Throughout] O2 Sat by Pulse Oximetry - Labs CBC & Chem 7: 04/15/17 06:46 04/16/17 05:10 Labs: Abnormal lab results 04/16/17 04/16/17 04/17/17 Range/Units 16:44 20:34 08:02 POC Glucose 245 H 232 H 196 H (70-105) 04/17/17 Range/Units 12:17 POC Glucose 272 H (70-105)
[2017-04-17] MEDS: DIFLUCAN 200 MG/100 ML BAG IV SCH (17:55)
[2017-04-17] MEDS: XALATAN 0.005% OU SCH (22:47)
[2017-04-18] MEDS: DUONEB *Not for PRN Use IH SCH ×4 (01:07→20:05)
[2017-04-18] MEDS: MAGIC MOUTHWASH PO SCH ×4 (02:32→21:23)
[2017-04-18] MEDS: HEPARIN SUB-Q SCH ×3 (06:02→21:26)
[2017-04-18 08:37] LABS: Hematocrit 35.4 % (30.3-42.9); Hemoglobin 11.8 gm/dl (10.1-14.3); Mean Corpuscular HGB Conc 33 % (30-34); Mean Corpuscular Hemoglobin 29 pg (28-32); Mean Corpuscular Volume 87 fl (79-97); Platelet Count 128 K/mm3 (140-440); Red Blood Count 4.06 M/mm3 (3.65-5.03); Red Cell Distribution Width 17.4 % (13.2-15.2); White Blood Count 11.4 K/mm3 (4.5-11.0)
[2017-04-18 08:56] LABS: Alanine Aminotransferase 20 units/L (7-56); Albumin/Globulin Ratio 1.4 %; Anion Gap 14 mmol/L; BUN/Creatinine Ratio 60; Blood Urea Nitrogen 42 mg/dL (7-17); Calcium 7.9 mg/dL (8.4-10.2); Carbon Dioxide 28 mmol/L (22-30); Chloride 101.2 mmol/L (98-107); Glucose 189 mg/dL (65-100); Sodium 137 mmol/L (137-145); Total Protein 5.1 g/dL (6.3-8.2)
--- NOTE | 2017-04-18 09:31 | Hem/Onc Progress Note ---
Assessment and Plan Labs stable. BUN/creatinine improving. Patient is quite deconditioned. Agree with rehabilitation. We will have to adjust and postpone chemotherapy accordingly. Subjective Date of service: 04/18/17 Interval history: Patient feels better. Still quite deconditioned. Is not able to get herself up from the bed. Contemplating rehabilitation Objective - Constitutional Vitals: Last Vital Signs Temp 97.8 F 04/18/17 04:40 Pulse 62 04/18/17 04:40 Resp 18 04/18/17 04:40 BP 152/92 04/18/17 04:40 Pulse Ox 26 L 04/18/17 04:40 Pain Intensity (0-10): denies any pain General appearance: mild distress Performance status: 4-completely disabled - Neck Neck: supple - Respiratory Respiratory effort: Positive: normal Respiratory: bilateral: diminished - Cardiovascular Rhythm: regular - Gastrointestinal General gastrointestinal: Present: soft - Labs Lab Results: Laboratory Results - last 24 hr 04/17/17 04/17/17 04/17/17 08:02 12:17 17:28 WBC RBC Hgb Hct MCV MCH MCHC RDW Plt Count Sodium Potassium Chloride Carbon Dioxide Anion Gap BUN Creatinine Estimated GFR BUN/Creatinine Ratio Glucose POC Glucose 196 H 272 H 236 H Calcium Total Bilirubin AST ALT Total Protein Albumin Albumin/Globulin Ratio 04/17/17 04/18/17 04/18/17 21:59 08:25 08:25 WBC 11.4 H RBC 4.06 Hgb 11.8 Hct 35.4 MCV 87 MCH 29 MCHC 33 RDW 17.4 H Plt Count 128 L Sodium 137 Potassium 6.0 H D Chloride 101.2 Carbon Dioxide 28 Anion Gap 14 BUN 42 H Creatinine 0.7 Estimated GFR > 60 BUN/Creatinine Ratio 60 Glucose 189 H POC Glucose 239 H Calcium 7.9 L Total Bilirubin 0.20 AST 17 ALT 20 Total Protein 5.1 L Albumin 3.0 L Albumin/Globulin Ratio 1.4 04/18/17 08:48 WBC RBC Hgb Hct MCV MCH MCHC RDW Plt Count Sodium Potassium Chloride Carbon Dioxide Anion Gap BUN Creatinine Estimated GFR BUN/Creatinine Ratio Glucose POC Glucose 186 H Calcium Total Bilirubin AST ALT Total Protein Albumin Albumin/Globulin Ratio
[2017-04-18 10:08] LABS: Alkaline Phosphatase 35 units/L (35-129)
[2017-04-18] MEDS: PEPCID PO SCH ×2 (10:08→21:22)
[2017-04-18] MEDS: NOVOLOG SUB-Q SCH ×4 (10:08→21:44)
[2017-04-18 10:26] LABS: Basophils % (Manual) 0 % (0.0-1.8); Blastocytes % (Manual) 0 %; Eosinophils % (Manual) 0 % (0.0-4.3)
[2017-04-18 10:40] LABS: Anisocytosis 1+; Diff Status Complete
[2017-04-18 10:41] LABS: Platelet Estimate Cons
--- NOTE | 2017-04-18 10:48 | Progress Note ---
Assessment and Plan COPD exacerbation, appears to be controlled at this time. Still some resting and exercise dyspnea present. Hyperkalemia. Needs to be rechecked Stage IV lung cancer with bone metastases SIRS. No fever. Former smoker Recommendations Potassium level recheck Continue oxygen support monitor oximetry when patient is out of bed or on exertion. Adjust portable oxygen if necessary, currently on home 2 L/m; keep oximetry > 89% . Follow-up ID recommendations regarding antibioticsdy. Inhaler therapy including LAMA ( Anoro 1 inh qd ) , at discharge. Nutritional support, weight reduction diet. DVT prophylaxis Subjective Date of service: 04/18/17 Principal diagnosis: SIRS Interval history: Patient reports that she still feels some shortness of breath and fatigue. On oxygen 2 L at home all the time. No wheezing or coughing. Objective Vital Signs - 12hr 04/17/17 04/17/17 04/18/17 22:47 23:00 00:00 Temperature 97.8 F Pulse Rate 93 H 96 H Pulse Rate [ Anterior Bilateral Throughout] Respiratory 24 20 Rate Respiratory Rate [Anterior Bilateral Throughout] Blood Pressure 143/95 [Left] O2 Sat by Pulse 98 Oximetry 04/18/17 04/18/17 04/18/17 04:40 09:43 09:45 Temperature 97.8 F Pulse Rate 62 Pulse Rate [ 92 H Anterior Bilateral Throughout] Respiratory 18 Rate Respiratory 18 Rate [Anterior Bilateral Throughout] Blood Pressure 152/92 [Left] O2 Sat by Pulse 26 L 98 Oximetry 04/18/17 09:57 Temperature Pulse Rate Pulse Rate [ 102 H Anterior Bilateral Throughout] Respiratory Rate Respiratory 18 Rate [Anterior Bilateral Throughout] Blood Pressure [Left] O2 Sat by Pulse Oximetry Constitutional: no acute distress, alert Eyes: non-icteric ENT: oropharynx moist Neck: supple Ascultation: Bilateral: clear (mostly clear ), diminished breath sounds ( decreased throughout), rales (fine, sporadic bases) Cardiovascular: regular rate and rhythm Gastrointestinal: normoactive bowel sounds, non-distended Integumentary: normal Extremities: no cyanosis, no edema Neurologic: normal mental status, non-focal exam, CN II-XII normal Psychiatric: mood appropriate, affect normal CBC and BMP: 04/18/17 08:25 04/18/17 08:25 ABG, PT/INR, D-dimer: ABG POC ABG pH 7.525 (7.35-7.45) H 04/13/17 14:37 POC ABG pCO2 28.5 (35-45) L 04/13/17 14:37 POC ABG pO2 92 (80-105) 04/13/17 14:37 POC ABG HCO3 23.5 04/13/17 14:37 POC ABG Total CO2 24 04/13/17 14:37 POC ABG O2 Sat 98 04/13/17 14:37 PT/INR, D-dimer PT 13.7 Sec. (12.2-14.9) 04/13/17 14:51 INR 1.00 (0.87-1.13) 04/13/17 14:51 Abnormal lab findings: Abnormal Labs 04/14/17 04/14/17 04/14/17 04:46 04:46 07:59 WBC 13.7 H RDW 17.0 H Plt Count Seg Neuts % (Manual) 80.0 H Lymphocytes % (Manual) 6.0 L Seg Neutrophils # Man 11.0 H Lymphocytes # (Manual) 0.8 L Sodium 135 L 136 L Potassium Chloride 96.8 L 96.0 L BUN 78 H 72 H Glucose 189 H 196 H POC Glucose Lactic Acid Calcium Total Protein 6.0 L Albumin 3.3 L 04/14/17 04/14/17 04/14/17 08:44 10:39 13:21 WBC RDW Plt Count Seg Neuts % (Manual) Lymphocytes % (Manual) Seg Neutrophils # Man Lymphocytes # (Manual) Sodium Potassium Chloride BUN Glucose POC Glucose 175 H 312 H Lactic Acid 2.70 H* Calcium Total Protein Albumin 04/14/17 04/14/17 04/15/17 16:49 21:51 06:46 WBC RDW 17.2 H Plt Count 125 L Seg Neuts % (Manual) Lymphocytes % (Manual) Seg Neutrophils # Man Lymphocytes # (Manual) Sodium Potassium Chloride BUN Glucose POC Glucose 252 H 196 H Lactic Acid Calcium Total Protein Albumin 04/15/17 04/15/17 04/15/17 06:46 07:55 11:06 WBC RDW Plt Count Seg Neuts % (Manual) Lymphocytes % (Manual) Seg Neutrophils # Man Lymphocytes # (Manual) Sodium Potassium Chloride BUN 54 H Glucose 167 H POC Glucose 168 H Lactic Acid 3.10 H* Calcium 7.8 L Total Protein Albumin 04/15/17 04/15/1704/15/17 11:58 15:34 21:04 WBC RDW Plt Count Seg Neuts % (Manual) Lymphocytes % (Manual) Seg Neutrophils # Man Lymphocytes # (Manual) Sodium Potassium Chloride BUN Glucose POC Glucose 205 H 262 H 289 H Lactic Acid Calcium Total Protein Albumin 04/16/17 04/16/17 04/16/17 05:10 05:10 07:55 WBC RDW Plt Count Seg Neuts % (Manual) Lymphocytes % (Manual) Seg Neutrophils # Man Lymphocytes # (Manual) Sodium Potassium Chloride BUN 41 H Glucose 183 H POC Glucose 190 H Lactic Acid 2.80 H* Calcium 7.4 L Total Protein Albumin 04/16/17 04/16/17 04/16/17 11:43 16:44 20:34 WBC RDW Plt Count Seg Neuts % (Manual) Lymphocytes % (Manual) Seg Neutrophils # Man Lymphocytes # (Manual) Sodium Potassium Chloride BUN Glucose POC Glucose 252 H 245 H 232 H Lactic Acid Calcium Total Protein Albumin 04/17/17 04/17/17 04/17/17 08:02 12:17 17:28 WBC RDW Plt Count Seg Neuts % (Manual) Lymphocytes % (Manual) Seg Neutrophils # Man Lymphocytes # (Manual) Sodium Potassium Chloride BUN Glucose POC Glucose 196 H 272 H 236 H Lactic Acid Calcium Total Protein Albumin 04/17/17 04/18/17 04/18/17 21:59 08:25 08:25 WBC 11.4 H RDW 17.4 H Plt Count 128 L Seg Neuts % (Manual) 96.0 H Lymphocytes % (Manual) 1.0 L Seg Neutrophils # Man 10.9 H Lymphocytes # (Manual) 0.1 L Sodium Potassium 6.0 H D Chloride BUN 42 H Glucose 189 H POC Glucose 239 H Lactic Acid Calcium 7.9 L Total Protein 5.1 L Albumin 3.0 L 04/18/17 08:48 WBC RDW Plt Count Seg Neuts % (Manual) Lymphocytes % (Manual) Seg Neutrophils # Man Lymphocytes # (Manual) Sodium Potassium Chloride BUN Glucose POC Glucose 186 H Lactic Acid Calcium Total Protein Albumin
--- NOTE | 2017-04-18 15:55 | Progress Note ---
Assessment and Plan Assessment: 1) SIRS: improving. Etiology unclear - DDx. ? dehydration. CRP=0.1 2) Recent oral candidiasis 3) Dysphagia/odynophagia ? ashley ? 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 Catherine Galeano MD Infectious Diseases Specialist [facility] ([facility]) M [phone] O [phone] Subjective Date of service: 04/18/17 Principal diagnosis: SIRS Interval history: Feels better, eating better. no odynophagia. No fever. Current Antimicrobials: fluconazole 04/14 Previous Antibiotics: Zosyn 04/14 Microbiology: Blood cultures: 04/13 ngtd U[place] cx 04/14 <10K Objective - Exam Narrative Exam: General appearance: Alert in NAD, conversant Eyes: anicteric sclerae, moist conjunctivae; no lid-lag; PERRLA HENT: Atraumatic; oropharynx clear Neck: Trachea midline; supple, no thyromegaly or lymphadenopathy Lungs: checo rhonchi. Right chest port CV: RRR, no murmurs Abdomen: Soft, non-tender; no masses or hepatosplenomegaly Extremities: No peripheral edema or extremity lymphadenopathy Skin: facial skin scaly nodules Psych: Appropriate affect, alert and oriented to person, place and time. Neuro: alert and oriented x 3. Moving all extermities Lines: No CVL / PICC - Constitutional Vitals: Vital Signs Temp Pulse Resp BP Pulse Ox 97.2 F L 100 H 28 H 143/84 94 04/18/17 14:03 04/18/17 15:00 04/18/17 14:03 04/18/17 14:03 04/18/17 14:03 Temperature -Last 24 Hours Temperature 97.2 F Temperature 98 F Temperature 97.8 F Temperature 97.8 F Temperature 97.1 F - Labs CBC & Chem 7: 04/18/17 08:25 04/18/17 11:21 Labs: Abnormal lab results 04/17/17 04/17/17 04/18/17 Range/Units 17:28 21:59 08:25 WBC 11.4 H (4.5-11.0) K/mm3 RDW 17.4 H (13.2-15.2) % Plt Count 128 L (140-440) K/mm3 Seg Neuts % (Manual) 96.0 H (40.0-70.0) % Lymphocytes % (Manual) 1.0 L (13.4-35.0) % Seg Neutrophils # Man 10.9 H (1.8-7.7) K/mm3 Lymphocytes # (Manual) 0.1 L (1.2-5.4) K/mm3 Potassium (3.6-5.0) mmol/L BUN (7-17) mg/dL Glucose (65-100) mg/dL POC Glucose 236 H 239 H (70-105) Calcium (8.4-10.2) mg/dL Total Protein (6.3-8.2) g/dL Albumin (3.9-5) g/dL 04/18/17 04/18/17 04/18/17 Range/Units 08:25 08:48 11:21 WBC (4.5-11.0) K/mm3 RDW (13.2-15.2) % Plt Count (140-440) K/mm3 Seg Neuts % (Manual) (40.0-70.0) % Lymphocytes % (Manual) (13.4-35.0) % Seg Neutrophils # Man (1.8-7.7) K/mm3 Lymphocytes # (Manual) (1.2-5.4) K/mm3 Potassium 6.0 H D 6.0 H (3.6-5.0) mmol/L BUN 42 H (7-17) mg/dL Glucose 189 H (65-100) mg/dL POC Glucose 186 H (70-105) Calcium 7.9 L (8.4-10.2) mg/dL Total Protein 5.1 L (6.3-8.2) g/dL Albumin 3.0 L (3.9-5) g/dL 04/18/17 Range/Units 12:39 WBC (4.5-11.0) K/mm3 RDW (13.2-15.2) % Plt Count (140-440) K/mm3 Seg Neuts % (Manual) (40.0-70.0) % Lymphocytes % (Manual) (13.4-35.0) % Seg Neutrophils # Man (1.8-7.7) K/mm3 Lymphocytes # (Manual) (1.2-5.4) K/mm3 Potassium (3.6-5.0) mmol/L BUN (7-17) mg/dL Glucose (65-100) mg/dL POC Glucose 187 H (70-105) Calcium (8.4-10.2) mg/dL Total Protein (6.3-8.2) g/dL Albumin (3.9-5) g/dL
[2017-04-18] MEDS: XALATAN 0.005% OU SCH (21:22)
[2017-04-18] MEDS: TYLENOL PO PRN (21:23)
[2017-04-18] MEDS ORDERED: KIONEX PO ONE (22:45)
--- NOTE | 2017-04-18 22:56 | Progress Note ---
Assessment and Plan Assessment and plan: 77 y/o female with pmh of Lung Ca ,COPD and HLD comes in for severe weakness and increasing SOB of 1 week duration and worsening. Feels very weak. On Chemo And XRT for Lung ca of 1 year duration. Cough productive of mucoid sputum. No fever or chills. No recent travel. SIRS * ID consulted, blood cultures with no growth so far. Repeat lactic acid still elevated but improved. * zosyn discontinued, will continue FLUCONAZOLE * continue hydration Recent Oral ashley * Fluconazole added * With odynophagia and may need GI eval if not improving. Acute bronchitis * Antibiotics as noted above. COPD exacerbation * Continue nebulizer treatment. Steroid taper. breathing exercises discussed * Pulmonary input noted. Acute respiratory failure with hypoxia * As noted above continue nebs, pulmonary valve, steroids. Oxygen therapy Hyperkalemia * Repeat still elevated will give additional Kayexalate . Squamous cell carcinoma of lung, stage IV * Dr Radford consulted.Her Oncologist HTN (hypertension) * Cont antihpertensives BRYCE (acute kidney injury) secondary to vasomotor nephropathy * Resolved. Nephrology input noted. Continue patient on IV fluids. HLD (hyperlipidemia) * Cont statins DVT and GI prophylaxis Plan of care discussed with the patient in detail She verbalized understanding. Await, PT/OT eval. STILL AWAITING Improvement in breathing then can discharge to SNF History Interval history: Patient seen and examined visibily short of breath this am Hospitalist Physical - Physical exam Narrative exam: VITAL SIGNS: Reviewed. GENERAL: Critically ill appearing. Vital signs as documented. HEAD: No signs of head trauma. EYES: Pupils are equal. Extraocular motions intact. EARS: Hearing grossly intact. MOUTH: Oropharynx is normal. NECK: No adenopathy, no JVD. CHEST: Chest with diminished breath sounds bilaterally. increased Accessory muscle use. CARDIAC: Regular rate and rhythm. S1 and S2, without murmurs, gallops, or rubs. VASCULAR: No Edema. Peripheral pulses normal and equal in all extremities. ABDOMEN: Soft, without detectable tenderness. No sign of distention. No rebound or guarding, and no masses palpated. Bowel Sounds normal. MUSCULOSKELETAL: Good range of motion of all major joints. Extremities without clubbing, cyanosis or edema. NEUROLOGIC EXAM: Alert and oriented x 3. No focal sensory or strength deficits. Overall lethargic. Speech is normal today. PSYCHIATRIC: Mood anxious SKIN: No rash or lesions. - Constitutional Vitals: Temp Pulse Resp BP Pulse Ox 98.4 F 100 H 22 140/86 96 04/18/17 20:34 04/18/17 20:34 04/18/17 20:34 04/18/17 20:34 04/18/17 20:34 General appearance: Present: severe distress, well-nourished Results - Labs CBC & Chem 7: 04/18/17 08:25 04/18/17 11:21 Labs: Laboratory Last Values WBC 11.4 K/mm3 (4.5-11.0) H 04/18/17 08:25 RBC 4.06 M/mm3 (3.65-5.03) 04/18/17 08:25 Hgb 11.8 gm/dl (10.1-14.3) 04/18/17 08:25 Hct 35.4 % (30.3-42.9) 04/18/17 08:25 MCV 87 fl (79-97) 04/18/17 08:25 MCH 29 pg (28-32) 04/18/17 08:25 MCHC 33 % (30-34) 04/18/17 08:25 RDW 17.4 % (13.2-15.2) H 04/18/17 08:25 Plt Count 128 K/mm3 (140-440) L 04/18/17 08:25 Add Manual Diff Complete 04/18/17 08:25 Total Counted 100 04/18/17 08:25 Seg Neutrophils % [employer]ing Advisor 04/14/17 04:46 Seg Neuts % (Manual) 96.0 % (40.0-70.0) H 04/18/17 08:25 Band Neutrophils % 1.0 % 04/18/17 08:25 Lymphocytes % (Manual) 1.0 % (13.4-35.0) L 04/18/17 08:25 Reactive Lymphs % (Man) 0 % 04/18/17 08:25 Monocytes % (Manual) 2.0 % (0.0-7.3) 04/18/17 08:25 Eosinophils % (Manual) 0 % (0.0-4.3) 04/18/17 08:25 Basophils % (Manual) 0 % (0.0-1.8) 04/18/17 08:25 Metamyelocytes % 0 % 04/18/17 08:25 Myelocytes % 0 % 04/18/17 08:25 Promyelocytes % 0 % 04/18/17 08:25 Blast Cells % 0 % 04/18/17 08:25 Nucleated RBC % Not Reportable 04/18/17 08:25 Seg Neutrophils # Man 10.9 K/mm3 (1.8-7.7) H 04/18/17 08:25 Band Neutrophils # 0.1 K/mm3 04/18/17 08:25 Lymphocytes # (Manual) 0.1 K/mm3 (1.2-5.4) L 04/18/17 08:25 Abs React Lymphs (Man) 0.0 K/mm3 04/18/17 08:25 Monocytes # (Manual) 0.2 K/mm3 (0.0-0.8) 04/18/17 08:25 Eosinophils # (Manual) 0.0 K/mm3 (0.0-0.4) 04/18/17 08:25 Basophils # (Manual) 0.0 K/mm3 (0.0-0.1) 04/18/17 08:25 Metamyelocytes # 0.0 K/mm3 04/18/17 08:25 Myelocytes # 0.0 K/mm3 04/18/17 08:25 Promyelocytes # 0.0 K/mm3 04/18/17 08:25 Blast Cells # 0.0 K/mm3 04/18/17 08:25 WBC Morphology Not Reportable 04/18/17 08:25 Hypersegmented Neuts Not Reportable 04/18/17 08:25 Hyposegmented Neuts Not Reportable 04/18/17 08:25 Hypogranular Neuts Not Reportable 04/18/17 08:25 Smudge Cells Not Reportable 04/18/17 08:25 Toxic Granulation Not Reportable 04/18/17 08:25 Toxic Vacuolation Not Reportable 04/18/17 08:25 Dohle Bodies Not Reportable 04/18/17 08:25 Pelger-Huet Anomaly Not Reportable 04/18/17 08:25 Rima Rods Not Reportable 04/18/17 08:25 Platelet Estimate Cons 04/18/17 08:25 Clumped Platelets Not Reportable 04/18/17 08:25 Plt Clumps, EDTA Not Reportable 04/18/17 08:25 Large Platelets Not Reportable 04/18/17 08:25 Giant Platelets Not Reportable 04/18/17 08:25 Platelet Satelliting Not Reportable 04/18/17 08:25 Plt Morphology Comment Not Reportable 04/18/17 08:25 RBC Morphology Not Reportable 04/18/17 08:25 Dimorphic RBCs Not Reportable 04/18/17 08:25 Polychromasia Not Reportable 04/18/17 08:25 Hypochromasia Not Reportable 04/18/17 08:25 Poikilocytosis Not Reportable 04/18/17 08:25 Anisocytosis 1+ 04/18/17 08:25 Microcytosis Not Reportable 04/18/17 08:25 Macrocytosis Not Reportable 04/18/17 08:25 Spherocytes Not Reportable 04/18/17 08:25 Pappenheimer Bodies Not Reportable 04/18/17 08:25 Sickle Cells Not Reportable 04/18/17 08:25 Target Cells Not Reportable 04/18/17 08:25 Tear Drop Cells Not Reportable 04/18/17 08:25 Ovalocytes Not Reportable 04/18/17 08:25 Helmet Cells Not Reportable 04/18/17 08:25 [place] Bodies Not Reportable 04/18/17 08:25 [place] Rings Not Reportable 04/18/17 08:25 [place] Cells Not Reportable 04/18/17 08:25 Bite Cells Not Reportable 04/18/17 08:25 Crenated Cell Not Reportable 04/18/17 08:25 Elliptocytes Not Reportable 04/18/17 08:25 Acanthocytes (Spur) Not Reportable 04/18/17 08:25 Rouleaux Not Reportable 04/18/17 08:25 Hemoglobin C Crystals Not Reportable 04/18/17 08:25 Schistocytes Not Reportable 04/18/17 08:25 Malaria parasites Not Reportable 04/18/17 08:25 Brian Bodies Not Reportable 04/18/17 08:25 Hem Pathologist Commnt No 04/18/17 08:25 PT 13.7 Sec. (12.2-14.9) 04/13/17 14:51 INR 1.00 (0.87-1.13) 04/13/17 14:51 APTT < 20.0 Sec. (24.2-36.6) L 04/13/17 14:51 POC ABG pH 7.525 (7.35-7.45) H 04/13/17 14:37 POC ABG pCO2 28.5 (35-45) L 04/13/17 14:37 POC ABG pO2 92 (80-105) 04/13/17 14:37 POC ABG HCO3 23.5 04/13/17 14:37 POC ABG Total CO2 24 04/13/17 14:37 POC ABG O2 Sat 98 04/13/17 14:37 POC ABG Base Excess 1 04/13/17 14:37 FiO2 28 % 04/13/17 14:37 Sodium 137 mmol/L (137-145) 04/18/17 08:25 Potassium 6.0 mmol/L (3.6-5.0) H 04/18/17 11:21 Chloride 101.2 mmol/L (98-107) 04/18/17 08:25 Carbon Dioxide 28 mmol/L (22-30) 04/18/17 08:25 Anion Gap 14 mmol/L 04/18/17 08:25 BUN 42 mg/dL (7-17) H 04/18/17 08:25 Creatinine 0.7 mg/dL (0.7-1.2) 04/18/17 08:25 Estimated GFR > 60 ml/min 04/18/17 08:25 BUN/Creatinine Ratio 60 % 04/18/17 08:25 Glucose 189 mg/dL (65-100) H 04/18/17 08:25 POC Glucose 201 (70-105) H 04/18/17 21:27 Lactic Acid 2.80 mmol/L (0.7-2.0) H* 04/16/17 05:10 Calcium 7.9 mg/dL (8.4-10.2) L 04/18/17 08:25 Phosphorus 3.70 mg/dL (2.5-4.5) 04/13/17 14:51 Magnesium 2.30 mg/dL (1.7-2.3) 04/13/17 14:51 Total Bilirubin 0.20 mg/dL (0.1-1.2) 04/18/17 08:25 Direct Bilirubin < 0.2 mg/dL (0-0.2) 04/13/17 14:51 Indirect Bilirubin 0.1 mg/dL 04/13/17 14:51 AST 17 units/L (5-40) 04/18/17 08:25 ALT 20 units/L (7-56) 04/18/17 08:25 Alkaline Phosphatase 35 units/L (35-129) 04/18/17 08:25 Troponin T < 0.010 ng/mL (0.00-0.029) 04/13/17 14:51 C-Reactive Protein 0.10 mg/dL (0.00-1.30) 04/14/17 15:18 NT-Pro-B Natriuret Pep 305.5 pg/mL (0-900) 04/13/17 14:51 Total Protein 5.1 g/dL (6.3-8.2) L 04/18/17 08:25 Albumin 3.0 g/dL (3.9-5) L 04/18/17 08:25 Albumin/Globulin Ratio 1.4 % 04/18/17 08:25 Urine Color Yellow (Yellow) 04/14/17 16:07 Urine Turbidity Clear (Clear) 04/14/17 16:07 Urine pH 5.0 (5.0-7.0) 04/14/17 16:07 Ur Specific [place] 1.024 (1.003-1.030) 04/14/17 16:07 Urine Protein <15 mg/dl mg/dL (Negative) 04/14/17 16:07 Urine Glucose (UA) Neg mg/dL (Negative) 04/14/17 16:07 Urine Ketones Neg mg/dL (Negative) 04/14/17 16:07 Urine Blood Neg (Negative) 04/14/17 16:07 Urine Nitrite Neg (Negative) 04/14/17 16:07 Urine Bilirubin Neg (Negative) 04/14/17 16:07 Urine Urobilinogen < 2.0 mg/dL (<2.0) 04/14/17 16:07 Ur Leukocyte Esterase Neg (Negative) 04/14/17 16:07 Urine WBC (Auto) 4.0 /HPF (0.0-6.0) 04/14/17 16:07 Urine RBC (Auto) 2.0 /HPF (0.0-6.0) 04/14/17 16:07 U Epithel Cells (Auto) 1.0 /HPF (0-13.0) 04/14/17 16:07 Urine Mucus Few /HPF 04/14/17 16:07 Blood Type A POSITIVE 04/13/17 14:50 Antibody Screen Negative 04/13/17 14:50
[2017-04-19] MEDS: DUONEB *Not for PRN Use IH SCH ×4 (02:15→23:37)
[2017-04-19] MEDS: HEPARIN SUB-Q SCH ×2 (05:49→13:25)
[2017-04-19] MEDS: MAGIC MOUTHWASH PO SCH ×3 (05:49→13:25)
[2017-04-19 07:07] LABS: Anion Gap 14 mmol/L; BUN/Creatinine Ratio 64; Blood Urea Nitrogen 45 mg/dL (7-17); Calcium 7.8 mg/dL (8.4-10.2); Carbon Dioxide 30 mmol/L (22-30); Chloride 101.5 mmol/L (98-107); Glucose 208 mg/dL (65-100); Potassium 5.4 mmol/L (3.6-5.0); Sodium 140 mmol/L (137-145)
[2017-04-19] MEDS: NOVOLOG SUB-Q SCH ×3 (08:46→16:47)
[2017-04-19] MEDS: TYLENOL PO PRN (08:49)
[2017-04-19] MEDS: PEPCID PO SCH (09:06)
--- NOTE | 2017-04-19 09:32 | Hem/Onc Progress Note ---
Assessment and Plan If discharged, I will see her as outpatient. We will coordinate with rehabilitation center to resume her treatment once she is able to. Subjective Date of service: 04/19/17 Interval history: Patient feels better. Possibly going to a rehabilitation center in [place]. We can the lower extremity. Able to feed herself. Objective - Constitutional Vitals: Last Vital Signs Temp 97.9 F 04/19/17 04:40 Pulse 107 H 04/19/17 08:57 Resp 24 04/19/17 04:40 BP 152/74 04/19/17 04:40 Pulse Ox 96 04/19/17 04:40 General appearance: mild distress Performance status: 4-completely disabled - Neck Neck: supple - Respiratory Respiratory: bilateral: diminished - Cardiovascular Rhythm: regular Extremities: No edema - Labs Lab Results: Laboratory Results - last 24 hr 04/18/17 04/18/17 04/18/17 08:25 08:25 11:21 Add Manual Diff Complete Total Counted 100 Seg Neuts % (Manual) 96.0 H Band Neutrophils % 1.0 Lymphocytes % (Manual) 1.0 L Reactive Lymphs % (Man) 0 Monocytes % (Manual) 2.0 Eosinophils % (Manual) 0 Basophils % (Manual) 0 Metamyelocytes % 0 Myelocytes % 0 Promyelocytes % 0 Blast Cells % 0 Nucleated RBC % Not Reportable Seg Neutrophils # Man 10.9 H Band Neutrophils # 0.1 Lymphocytes # (Manual) 0.1 L Abs React Lymphs (Man) 0.0 Monocytes # (Manual) 0.2 Eosinophils # (Manual) 0.0 Basophils # (Manual) 0.0 Metamyelocytes # 0.0 Myelocytes # 0.0 Promyelocytes # 0.0 Blast Cells # 0.0 WBC Morphology Not Reportable Hypersegmented Neuts Not Reportable Hyposegmented Neuts Not Reportable Hypogranular Neuts Not Reportable Smudge Cells Not Reportable Toxic Granulation Not Reportable Toxic Vacuolation Not Reportable Dohle Bodies Not Reportable Pelger-Huet Anomaly Not Reportable Rima Rods Not Reportable Platelet Estimate Cons Clumped Platelets Not Reportable Plt Clumps, EDTA Not Reportable Large Platelets Not Reportable Giant Platelets Not Reportable Platelet Satelliting Not Reportable Plt Morphology Comment Not Reportable RBC Morphology Not Reportable Dimorphic RBCs Not Reportable Polychromasia Not Reportable Hypochromasia Not Reportable Poikilocytosis Not Reportable Anisocytosis 1+ Microcytosis Not Reportable Macrocytosis Not Reportable Spherocytes Not Reportable Pappenheimer Bodies Not Reportable Sickle Cells Not Reportable Target Cells Not Reportable Tear Drop Cells Not Reportable Ovalocytes Not Reportable Helmet Cells Not Reportable [place] Bodies Not Reportable [place] Rings Not Reportable Poly Cells Not Reportable Bite Cells Not Reportable Crenated Cell Not Reportable Elliptocytes Not Reportable Acanthocytes (Spur) Not Reportable Rouleaux Not Reportable Hemoglobin C Crystals Not Reportable Schistocytes Not Reportable Malaria parasites Not Reportable Brian Bodies Not Reportable Hem Pathologist Commnt No Sodium Potassium 6.0 H Chloride Carbon Dioxide Anion Gap BUN Creatinine Estimated GFR BUN/Creatinine Ratio Glucose POC Glucose Calcium Alkaline Phosphatase 35 04/18/17 04/18/17 04/18/17 12:39 17:18 21:27 Add Manual Diff Total Counted Seg Neuts % (Manual) Band Neutrophils % Lymphocytes % (Manual) Reactive Lymphs % (Man) Monocytes % (Manual) Eosinophils % (Manual) Basophils % (Manual) Metamyelocytes % Myelocytes % Promyelocytes % Blast Cells % Nucleated RBC % Seg Neutrophils # Man Band Neutrophils # Lymphocytes # (Manual) Abs React Lymphs (Man) Monocytes # (Manual) Eosinophils # (Manual) Basophils # (Manual) Metamyelocytes # Myelocytes # Promyelocytes # Blast Cells # WBC Morphology Hypersegmented Neuts Hyposegmented Neuts Hypogranular Neuts Smudge Cells Toxic Granulation Toxic Vacuolation Dohle Bodies Pelger-Huet Anomaly Rima Rods Platelet Estimate Clumped Platelets Plt Clumps, EDTA Large Platelets Giant Platelets Platelet Satelliting Plt Morphology Comment RBC Morphology Dimorphic RBCs Polychromasia Hypochromasia Poikilocytosis Anisocytosis Microcytosis Macrocytosis Spherocytes Pappenheimer Bodies Sickle Cells Target Cells Tear Drop Cells Ovalocytes Helmet Cells [place] Bodies [place] Rings Poly Cells Bite Cells Crenated Cell Elliptocytes Acanthocytes (Spur) Rouleaux Hemoglobin C Crystals Schistocytes Malaria parasites Brian Bodies Hem Pathologist Commnt Sodium Potassium Chloride Carbon Dioxide Anion Gap BUN Creatinine Estimated GFR BUN/Creatinine Ratio Glucose POC Glucose 187 H 197 H 201 H Calcium Alkaline Phosphatase 04/19/17 05:50 Add Manual Diff Total Counted Seg Neuts % (Manual) Band Neutrophils % Lymphocytes % (Manual) Reactive Lymphs % (Man) Monocytes % (Manual) Eosinophils % (Manual) Basophils % (Manual) Metamyelocytes % Myelocytes % Promyelocytes % Blast Cells % Nucleated RBC % Seg Neutrophils # Man Band Neutrophils # Lymphocytes # (Manual) Abs React Lymphs (Man) Monocytes # (Manual) Eosinophils # (Manual) Basophils # (Manual) Metamyelocytes # Myelocytes # Promyelocytes # Blast Cells # WBC Morphology Hypersegmented Neuts Hyposegmented Neuts Hypogranular Neuts Smudge Cells Toxic Granulation Toxic Vacuolation Dohle Bodies Pelger-Huet Anomaly Rima Rods Platelet Estimate Clumped Platelets Plt Clumps, EDTA Large Platelets Giant Platelets Platelet Satelliting Plt Morphology Comment RBC Morphology Dimorphic RBCs Polychromasia Hypochromasia Poikilocytosis Anisocytosis Microcytosis Macrocytosis Spherocytes Pappenheimer Bodies Sickle Cells Target Cells Tear Drop Cells Ovalocytes Helmet Cells Lopez-[place] Bodies [place] Rings Poly Cells Bite Cells Crenated Cell Elliptocytes Acanthocytes (Spur) Rouleaux Hemoglobin C Crystals Schistocytes Malaria parasites Brian Bodies Hem Pathologist Commnt Sodium 140 Potassium 5.4 H Chloride 101.5 Carbon Dioxide 30 Anion Gap 14 BUN 45 H Creatinine 0.7 Estimated GFR > 60 BUN/Creatinine Ratio 64 Glucose 208 H POC Glucose Calcium 7.8 L Alkaline Phosphatase
[2017-04-19] MEDS ORDERED: DIFLUCAN PO SCH (10:00)
--- NOTE | 2017-04-19 12:27 | Progress Note ---
Assessment and Plan COPD exacerbation, controlled. Can not exclude some level of ILD with her HX. Still some resting and exercise dyspnea present. Clinically deconditioned.No wheezing Hyperkalemia. 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 No fever. Former smoker Recommendations Monitor Potassium level Continue oxygen support Needs physical rehab Complete ABX Inhaler therapy including LAMA ( Anoro 1 inh qd ) , at discharge. Nutritional support, weight reduction diet. DVT prophylaxis Subjective Date of service: 04/19/17 Principal diagnosis: SIRS Interval history: SOB,TORRES on minimal exartion. No cough, fever or chest pain. very limited physically, waek legs > 1 year Objective Vital Signs - 12hr 04/19/17 04/19/17 04/19/17 00:53 04:40 07:44 Temperature 97.2 F L 97.9 F Pulse Rate 102 H 96 H 94 H Pulse Rate [ Anterior Bilateral Throughout] Pulse Rate [ Bilateral] Pulse Rate [ From Monitor] Respiratory 24 24 Rate Respiratory Rate [Anterior Bilateral Throughout] Respiratory Rate [Bilateral ] Blood Pressure 166/101 Blood Pressure 154/72 152/74 [Left] Blood Pressure [Right] O2 Sat by Pulse 96 96 96 Oximetry 04/19/17 04/19/17 04/19/17 07:45 08:57 10:00 Temperature 98.7 F Pulse Rate 94 H Pulse Rate [ Anterior Bilateral Throughout] Pulse Rate [ Bilateral] Pulse Rate [ 107 H From Monitor] Respiratory 24 Rate Respiratory Rate [Anterior Bilateral Throughout] Respiratory Rate [Bilateral ] Blood Pressure Blood Pressure [Left] Blood Pressure 166/101 [Right] O2 Sat by Pulse 96 97 Oximetry 04/19/17 10:47 Temperature Pulse Rate Pulse Rate [ 93 H Anterior Bilateral Throughout] Pulse Rate [ 95 H Bilateral] Pulse Rate [ From Monitor] Respiratory Rate Respiratory 20 Rate [Anterior Bilateral Throughout] Respiratory 18 Rate [Bilateral ] Blood Pressure Blood Pressure [Left] Blood Pressure [Right] O2 Sat by Pulse Oximetry Constitutional: no acute distress, alert Eyes: non-icteric ENT: oropharynx moist Neck: supple Ascultation: Bilateral: clear (mostly clear ), diminished breath sounds ( decreased throughout), rales (fine, sporadic bases) Cardiovascular: regular rate and rhythm Gastrointestinal: normoactive bowel sounds, non-distended Integumentary: normal Extremities: no cyanosis, no edema Neurologic: normal mental status, non-focal exam, CN II-XII normal, other ( decreased R/LLE extensors ,flexors) Psychiatric: mood appropriate, affect normal CBC and BMP: 04/18/17 08:25 04/19/17 05:50 ABG, PT/INR, D-dimer: ABG POC ABG pH 7.525 (7.35-7.45) H 04/13/17 14:37 POC ABG pCO2 28.5 (35-45) L 04/13/17 14:37 POC ABG pO2 92 (80-105) 04/13/17 14:37 POC ABG HCO3 23.5 04/13/17 14:37 POC ABG Total CO2 24 04/13/17 14:37 POC ABG O2 Sat 98 04/13/17 14:37 PT/INR, D-dimer PT 13.7 Sec. (12.2-14.9) 04/13/17 14:51 INR 1.00 (0.87-1.13) 04/13/17 14:51 Abnormal lab findings: Abnormal Labs 04/14/17 04/14/17 04/14/17 04:46 04:46 07:59 WBC 13.7 H RDW 17.0 H Plt Count Seg Neuts % (Manual) 80.0 H Lymphocytes % (Manual) 6.0 L Seg Neutrophils # Man 11.0 H Lymphocytes # (Manual) 0.8 L Sodium 135 L 136 L Potassium Chloride 96.8 L 96.0 L BUN 78 H 72 H Glucose 189 H 196 H POC Glucose Lactic Acid Calcium Total Protein 6.0 L Albumin 3.3 L 04/14/17 04/14/17 04/14/17 08:44 10:39 13:21 WBC RDW Plt Count Seg Neuts % (Manual) Lymphocytes % (Manual) Seg Neutrophils # Man Lymphocytes # (Manual) Sodium Potassium Chloride BUN Glucose POC Glucose 175 H 312 H Lactic Acid 2.70 H* Calcium Total Protein Albumin 04/14/17 04/14/17 04/15/17 16:49 21:51 06:46 WBC RDW 17.2 H Plt Count 125 L Seg Neuts % (Manual) Lymphocytes % (Manual) Seg Neutrophils # Man Lymphocytes # (Manual) Sodium Potassium Chloride BUN Glucose POC Glucose 252 H 196 H Lactic Acid Calcium Total Protein Albumin 04/15/17 04/15/17 04/15/17 06:46 07:55 11:06 WBC RDW Plt Count Seg Neuts % (Manual) Lymphocytes % (Manual) Seg Neutrophils # Man Lymphocytes # (Manual) Sodium Potassium Chloride BUN 54 H Glucose 167 H POC Glucose 168 H Lactic Acid 3.10 H* Calcium 7.8 L Total Protein Albumin 04/15/17 04/15/17 04/15/17 11:58 15:34 21:04 WBC RDW Plt Count Seg Neuts % (Manual) Lymphocytes % (Manual) Seg Neutrophils # Man Lymphocytes # (Manual) Sodium Potassium Chloride BUN Glucose POC Glucose 205 H 262 H 289 H Lactic Acid Calcium Total Protein Albumin 04/16/17 04/16/17 04/16/17 05:10 05:10 07:55 WBC RDW Plt Count Seg Neuts % (Manual) Lymphocytes % (Manual) Seg Neutrophils # Man Lymphocytes # (Manual) Sodium Potassium Chloride BUN 41 H Glucose 183 H POC Glucose 190 H Lactic Acid 2.80 H* Calcium 7.4 L Total Protein Albumin 04/16/17 04/16/17 04/16/17 11:43 16:44 20:34 WBC RDW Plt Count Seg Neuts % (Manual) Lymphocytes % (Manual) Seg Neutrophils # Man Lymphocytes # (Manual) Sodium Potassium Chloride BUN Glucose POC Glucose 252 H 245 H 232 H Lactic Acid Calcium Total Protein Albumin 04/17/17 04/17/17 04/17/17 08:02 12:17 17:28 WBC RDW Plt Count Seg Neuts % (Manual) Lymphocytes % (Manual) Seg Neutrophils # Man Lymphocytes # (Manual) Sodium Potassium Chloride BUN Glucose POC Glucose 196 H 272 H 236 H Lactic Acid Calcium Total Protein Albumin 04/17/17 04/18/17 04/18/17 21:59 08:25 08:25 WBC 11.4 H RDW 17.4 H Plt Count 128 L Seg Neuts % (Manual) 96.0 H Lymphocytes % (Manual) 1.0 L Seg Neutrophils # Man 10.9 H Lymphocytes # (Manual) 0.1 L Sodium Potassium 6.0 H D Chloride BUN 42 H Glucose 189 H POC Glucose 239 H Lactic Acid Calcium 7.9 L Total Protein 5.1 L Albumin 3.0 L 04/18/17 04/18/17 04/18/17 08:48 11:21 12:39 WBC RDW Plt Count Seg Neuts % (Manual) Lymphocytes % (Manual) Seg Neutrophils # Man Lymphocytes # (Manual) Sodium Potassium 6.0 H Chloride BUN Glucose POC Glucose 186 H 187 H Lactic Acid Calcium Total Protein Albumin 04/18/17 04/18/17 04/19/17 17:18 21:27 05:50 WBC RDW Plt Count Seg Neuts % (Manual) Lymphocytes % (Manual) Seg Neutrophils # Man Lymphocytes # (Manual) Sodium Potassium 5.4 H Chloride BUN 45 H Glucose 208 H POC Glucose 197 H 201 H Lactic Acid Calcium 7.8 L Total Protein Albumin 04/19/17 07:53 WBC RDW Plt Count Seg Neuts % (Manual) Lymphocytes % (Manual) Seg Neutrophils # Man Lymphocytes # (Manual) Sodium Potassium Chloride BUN Glucose POC Glucose 200 H Lactic Acid Calcium Total Protein Albumin
[2017-04-19] MEDS ORDERED: KIONEX PO ONE (13:00)
--- NOTE | 2017-04-19 15:14 | Discharge Summary ---
Providers - Providers Date of Admission: 04/13/17 15:49 Attending physician: SEAN ORTEGA MD 04/13/17 21:16 Consult to Physician [CONS] Routine Consulting Provider: ARTUR JIMÉNEZ Reason For Exam: lung ca Place consult to:: TINO Notified:: NO Phone number called:: Was contact made?: No 04/14/17 06:30 Consult to Physician [CONS] Routine Consulting Provider: ANNA PERLA Reason For Exam: BRYCE Place consult to:: Dr. Perla Notified:: Shawanda GARCIA Was contact made?: Yes Comment:: Dr. Perla is aware of consult 04/14/17 06:31 Consult to Physician [CONS] Routine Consulting Provider: DARI CHILDERS Reason For Exam: Sepsis Place consult to:: Dr. Kennedy Notified:: Shawanda GARCIA Was contact made?: Yes If yes, spoke with:: Dr. Kennedy Time called:: 14:00 04/14/17 13:35 Consult to Physician [CONS] Routine Consulting Provider: KARINA MILLER Reason For Exam: COPD EXACERBATION Place consult to:: Dr. Miller Notified:: Shawanda GARCIA Phone number called:: Was contact made?: Yes If yes, spoke with:: Yajaira-Office Time called:: 15:58 04/15/17 15:03 Occupational Therapy Evaluate and Treat [CONS] Routine Comment: Reason For Exam: DEBILITY Physical Therapy Evaluation and Treat [CONS] Routine Comment: Reason For Exam: DEBILITY Primary care physician: [employer] Hospitalization Condition: Stable Hospital course: 77 y/o female with pmh of Lung Ca ,COPD and HLD comes in for severe weakness and increasing SOB of 1 week duration and worsening. Feels very weak. On Chemo And XRT for Lung ca of 1 year duration. Cough productive of mucoid sputum. No fever or chills. No recent travel. NEEDS REHAB. Needs anxiety management SIRS * ID consulted, blood cultures with no growth so far. Repeat lactic acid still elevated but improved. * zosyn discontinued, will continue FLUCONAZOLE * continue hydration Recent Oral ashley * Fluconazole added * With odynophagia and may need GI eval if not improving. Acute bronchitis * Antibiotics as noted above. COPD exacerbation * Continue nebulizer treatment. Steroid taper. breathing exercises discussed * Pulmonary input noted. * Anoro qd Acute respiratory failure with hypoxia * As noted above continue nebs, pulmonary valve, steroids. Oxygen therapy Hyperkalemia * Repeat still elevated will give additional Kayexalate . Squamous cell carcinoma of lung, stage IV * Dr Jiménez consulted.Her Oncologist HTN (hypertension) * Cont antihpertensives BRYCE (acute kidney injury) secondary to vasomotor nephropathy * Resolved. Nephrology input noted. Continue patient on IV fluids. HLD (hyperlipidemia) * Cont statins DVT and GI prophylaxis Plan of care discussed with the patient in detail She verbalized understanding. Await, PT/OT eval. STILL AWAITING Improvement in breathing then can discharge to SNF Disposition: [id number]/[place]-03 SNF [facility] Time spent for discharge: 35 mins Core Measure Documentation - Palliative Care Palliative Care/ Comfort Measures: Not Applicable - Core Measures Any of the following diagnoses?: none - VTE Discharge Requirements Deep Vein Thrombosis/Pulmonary Embolism Present on Admission: No Exam - Physical Exam Narrative exam: VITAL SIGNS: Reviewed. GENERAL: Critically ill appearing. Vital signs as documented. HEAD: No signs of head trauma. EYES: Pupils are equal. Extraocular motions intact. EARS: Hearing grossly intact. MOUTH: Oropharynx is normal. NECK: No adenopathy, no JVD. CHEST: Chest with diminished breath sounds bilaterally. increased Accessory muscle use. CARDIAC: Regular rate and rhythm. S1 and S2, without murmurs, gallops, or rubs. VASCULAR: No Edema. Peripheral pulses normal and equal in all extremities. ABDOMEN: Soft, without detectable tenderness. No sign of distention. No rebound or guarding, and no masses palpated. Bowel Sounds normal. MUSCULOSKELETAL: Good range of motion of all major joints. Extremities without clubbing, cyanosis or edema. NEUROLOGIC EXAM: Alert and oriented x 3. No focal sensory or strength deficits. Overall lethargic. Speech is normal today. PSYCHIATRIC: Mood anxious SKIN: No rash or lesions. - Constitutional Vitals: Temp Pulse Resp BP Pulse Ox 98.7 F 93 H 20 166/101 97 04/19/17 07:45 04/19/17 10:47 04/19/17 10:47 04/19/17 07:45 04/19/17 10:00 Plan Activity: advance as tolerated, fall precautions Diet: low salt Special Instructions: record daily BP diary, follow up in rehab, physical therapy, occupational therapy, home oxygen via (2 nc) Follow up with: PRIMARY CAREMD [Primary Care Provider] - 3-5 Days JOSE INIGUEZ MD [Staff Physician] - 7 Days ARTUR JIMÉNEZ MD [Staff Physician] - 7 Days Prescriptions: Fluconazole [Diflucan TAB] 200 mg PO QDAY #10 tablet Hydrochlorothiazide [HCTZ] 25 mg PO QDAY #30 tablet LORazepam [Ativan] 0.5 mg PO BID #30 tablet oxyCODONE /ACETAMINOPHEN [Percocet 5/325 mg] 1 tab PO Q6H PRN #14 tablet PRN Reason: Pain, Moderate (4-6) Theophylline Anhydrous [Theophylline] 400 mg PO QDAY #30 tab.er.24h Umeclidinium Brm/Vilanterol Tr [Anoro Ellipta 62.5-25 Mcg INH] 1 each IH DAILY 30 Days
[2017-04-19] MEDS ORDERED: XANAX PO PRN (16:00)
[2017-04-19] MEDS ORDERED: HCTZ PO SCH (16:00)
[2017-04-19] MEDS: PERCOCET 5/325 PO PRN (16:05)
[2017-04-19 19:01] VITALS: BP 148/93
== END 2017-04-19 20:25 | DRG 871 ==
LOC: ED 13:32 → 4A 15:49
PROVIDERS: ADMIT Internal Medicine; ATTEND Internal Medicine
PROC: 4A033R1 Measurement of Arterial Saturation, Peripheral, Percutaneous Approach (ICD-10-PCS; principal; 2017-04-13)
PROC: 3E0234Z Introduction of Serum, Toxoid and Vaccine into Muscle, Percutaneous Approach (ICD-10-PCS; 2017-04-14)
DX: A41.9 Sepsis, unspecified organism (principal); J96.01 Acute respiratory failure with hypoxia; N17.0 Acute kidney failure with tubular necrosis; C34.90 Malignant neoplasm of unspecified part of unspecified bronchus or lung; J44.1 Chronic obstructive pulmonary disease with (acute) exacerbation; E87.5 Hyperkalemia; I10 Essential (primary) hypertension; E11.9 Type 2 diabetes mellitus without complications; R65.20 Severe sepsis without septic shock; E78.5 Hyperlipidemia, unspecified; J20.9 Acute bronchitis, unspecified; Z23 Encounter for immunization; Z88.8 Allergy status to other drugs, medicaments and biological substances; Z85.118 Personal history of other malignant neoplasm of bronchus and lung; Z90.710 Acquired absence of both cervix and uterus; Z87.891 Personal history of nicotine dependence
CPT/HCPCS: 36415; 71010; 71020; 80048; 80053; 80074; 81001; 82140; 82803; 82962; 83735; 83880; 84100; 84132; 84484; 85007; 85025; 85027; 85610; 85730; 86140; 86850; 86900; 86901; 87040; 87086; 90686; 90732; 93005; 93010; 94640; 94760; G8978-GP; G8979-GP; J1170; J1450; J1644; J1815; J1956; J2270; J2543; J2920; J7030